=== PATIENT | female | born 1925 | race Caucasian/White ===

== ENCOUNTER 2016-09-15 10:23 | Inpatient (IN) | payer MEDICARE, OTHER ==
--- NOTE | 2016-09-15 10:56 | ER Document Report ---
ED Dizziness/Weakness - General Chief Complaint: General Weakness Stated Complaint: GENERAL WEAKNESS Notes: Patient is being seen today because of altered and change in mental status, inability to walk, which is not normal for her. Her daughter is here with the patient says the patient lives with her (the daughters) brother. Last week she was coughing and congested and her primary care provider put on a 5 day course of prednisone which she finished on Saturday. Saturday, the daughter says that the patient was "out of it" mentally, but she thought it might be due to the prednisone she had been taking. On Saturday and , the patient was "fine", then, yesterday, she was unable to walk and confused and "spaced out". Patient's normal mental status is "sharp as a tack", for example, according to the daughter, patient can complete the [employer] crossword puzzle in minutes. She does have poor eyesight and poor hearing chronically. She has headaches occasionally for a long time, nothing new. Daughter says patient has diarrhea frequently. No vomiting currently. Has not had a fever or been ill in any way recently. Her primary care provider called in a prescription for amoxicillin which the patient started yesterday with 2 doses and she's had one today. 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 TRAVEL OUTSIDE OF THE [place] IN LAST 30 DAYS: No - Related Data Allergies/Adverse Reactions: aspirin [Aspirin] Allergy (Verified 05/23/15 18:16) Penicillins Allergy (Verified 05/23/15 18:16) Past Medical History - Social History Smoking Status: Never Smoker Chew tobacco use (# tins/day): No Frequency of alcohol use: None Drug Abuse: None Family History: Reviewed & Not Pertinent, Other - No history of DVT, PE. - Past Medical History Cardiac Medical History: Reports: Hx DVT - Was on anticoagulation, but no longer on that medication. Neurological Medical History: Denies: Hx Cerebrovascular Accident GI Medical History: Reports: Hx Cirrhosis Psychiatric Medical History: Reports: Hx Depression Past Surgical History: Reports: Hx Orthopedic Surgery - L hip Review of Systems - Review of Systems Notes: REVIEW OF SYSTEMS: Obtained from patient's daughter CONSTITUTIONAL : Denies fever. EENT: Denies eye, ear, nose or mouth or throat pain or other symptoms. CARDIOVASCULAR: Denies chest pain. RESPIRATORY: Has had cough and congestion, but not short of breath. GASTROINTESTINAL: Denies abdominal pain or nausea, vomiting, but has chronic diarrhea. GENITOURINARY: Denies difficulty or painful urinating, urinary frequency, blood in urine. MUSCULOSKELETAL: Denies back or neck pain. Denies joint pain or swelling. SKIN: Denies rash or skin lesions. NEUROLOGICAL: See history of present illness. ALL OTHER SYSTEMS REVIEWED AND NEGATIVE. Physical Exam - Vital signs Vitals: Resp 18 09/15/16 10:35 - Notes Notes: PHYSICAL EXAMINATION: GENERAL: Well-appearing, in no acute distress. Rather frail-appearing individual. Vital signs are normal except attempt has not been recorded. HEAD: Atraumatic, normocephalic. EYES: Pupils equal round and reactive to light, extraocular movements intact. ENT: oropharynx clear without exudates. Moist mucous membranes. Several bad teeth. NECK: Normal range of motion, supple. LUNGS: Breath sounds clear and equal bilaterally. HEART: Regular rate and rhythm without murmurs. ABDOMEN: Soft, nontender. No guarding or rebound. BACK: No tenderness throughout entire back. EXTREMITIES: Normal range of motion without pain. Passively full range of motion of the lower extremities from the hips down. NEUROLOGICAL: Normal speech, seems confused; unable to stand. Awake, alert, and oriented x3. . PSYCH: Normal mood, normal affect. SKIN: Warm, dry, no rashes. Course - Re-evaluation Re-evalutation: 09/15/16 14:00 CT scan shows microvascular changes and atrophy, but no acute process. Lab work looks like a UTI with a cathetered urine specimen showing large white cells and red cells. CBC is essentially normal. - Vital Signs Vital signs: Temp Pulse Resp BP Pulse Ox 20 106/94 H 95 09/15/16 12:00 09/15/16 11:02 09/15/16 12:00 - Laboratory Result Diagrams: 09/15/16 10:59 09/15/16 10:59 Laboratory results interpreted by me: 09/15/16 09/15/16 10:59 11:17 BUN 81 H Creatinine 3.62 H Est GFR ( Amer) 14 L Est GFR (Non-Af Amer) 12 L Glucose 166 H Calcium 7.9 L Total Bilirubin 2.1 H Direct Bilirubin 1.7 H AST 43 H Alkaline Phosphatase 215 H Total Protein 5.5 L Albumin 2.0 L Urine Protein 30 H Urine Blood LARGE H Ur Leukocyte Esterase LARGE H - EKG Interpretation by Me EKG shows normal: Sinus rhythm Additional EKG results interpreted by me: 09/15/16 10:55 EKG looks like a sinus rhythm to me, even though the machine reads it as a "wandering pacemaker". Looks like an old inferior NE and also an old anterior/ anterior septal NE. No acute changes. Discharge - Discharge Clinical Impression: UTI (urinary tract infection) Admitting Provider: Hospitalist Unit Admitted: Telemetry Referrals: ASHLYN GELLER MD [Primary Care Provider] - Follow up as needed
[2016-09-15 11:43] LABS: ALANINE AMINOTRANSFERASE 43 U/L (9-52); ALKALINE PHOSPHATASE 215 U/L (38-126); ANION GAP 11 (5-19); ASPARTATE AMINO TRANSFERASE 43 U/L (14-36); BILIRUBIN,DIRECT 1.7 mg/dL (0.0-0.4); BILIRUBIN,TOTAL 2.1 mg/dL (0.2-1.3); BLOOD UREA NITROGEN 81 mg/dL (7-20); CALCIUM 7.9 mg/dL (8.4-10.2); CARBON DIOXIDE 23 mmol/L (22-30); CHLORIDE 106 mmol/L (98-107); CREATINE KINASE 52 U/L (30-135); CREATININE RESULT 3.62 mg/dL (0.52-1.25); GLUCOSE 166 mg/dL (75-110); POTASSIUM 4.7 mmol/L (3.6-5.0); SODIUM 140.1 mmol/L (137-145); TOTAL PROTEIN 5.5 g/dL (6.3-8.2)
[2016-09-15 11:46] LABS: PROTHROMBIN TIME 15.1 SEC (11.4-15.4)
[2016-09-15 11:49] LABS: AMORPHOUS SEDIMENT,URINE TRACE /HPF; APPEARANCE,URINE CLOUDY; BILIRUBIN,URINE NEGATIVE (NEGATIVE); GLUCOSE, URINE NEGATIVE (NEGATIVE); KETONES,URINE NEGATIVE (NEGATIVE); LEUKOCYTE ESTERASE,URINE LARGE (NEGATIVE); NITRITE,URINE NEGATIVE (NEGATIVE); PROTEIN,URINE 30 mg/dL (NEGATIVE); URINE SPECIFIC GRAVITY 1.009; UROBILINOGEN,URINE NEGATIVE mg/dL (<2.0)
[2016-09-15 11:54] LABS: CREATINE KINASE MB 0.82 ng/mL (<4.55)
[2016-09-15 11:58] LABS: TROPONIN I 0.056 ng/mL
[2016-09-15] MEDS ORDERED: CEFTRIAXONE 1 GM/D5W RTU 50 ML IV ONE (13:36)
[2016-09-15] MEDS ORDERED: POTASSI CL 20 MEQ/D5-1/2NS 1L 1,000 ML IV PRN (14:33)
[2016-09-15] MEDS ORDERED: LACTOBACILLUS ACIDOPHILUS 250 MG TAB PO ONE (14:36)
--- NOTE | 2016-09-15 15:12 | EKG REPORT ---
SEVERITY:- ABNORMAL ECG - WANDERING PACEMAKER PROBABLE INFERIOR INFARCT, OLD ANTERIOR INFARCT, OLD : Confirmed by: Chaparro Werner MD 15-Sep-2016 15:12:20
[2016-09-15] MEDS ORDERED: NORMAL SALINE 1000 ML 1,000 ML IV PRN (15:45)
[2016-09-15] MEDS ORDERED: FLUTICASONE NASAL SPRAY 50 MCG/SPRY 120 SPRAY/16 GM NASL ONE (15:56)
--- NOTE | 2016-09-15 16:37 | PDOC H&P ---
History of Present Illness Admission Date/PCP: 09/15/16 14:33 Dr. Olmos in [facility] Patient complains of: Weakness History of Present Illness: TODD JORGE is a 89 year old with a past medical history of chronic kidney disease stage III and remote history of DVT. The patient presented to the emergency department with her daughter with a chief complaint of weakness. According to the daughter, the patient had been treated for urinary tract infection by her primary care provider yesterday and was started on penicillin. According to the daughter the patient is allergic to amoxicillin. Since that time the patient has had decrease in appetite and diarrhea. Morning of presentation the daughter noted Altered and change in mental status, inability to walk, which is not normal for her. During to the daughter the patient resides with her her son. Last week she was coughing and congested and her primary care provider put on a 5 day course of prednisone which she finished on Saturday. Saturday, the daughter says that the patient was "out of it" mentally, but she thought it might be due to the prednisone she had been taking. On Saturday and , the patient was "fine", then, yesterday, she was unable to walk and confused and "spaced out". Patient's normal mental status is " sharp as a tack", for example, according to the daughter, patient can complete the [employer] crossword puzzle in minutes. She does have poor eyesight and poor hearing chronically. She has headaches occasionally for a long time, nothing new. Daughter says patient has diarrhea frequently. No vomiting currently. Has not had a fever or been ill in any way recently. Upon presentation the patient was found to have a creatinine that was elevated of 2.6 to wear is her baseline is in the 1.5 range. Patient was noted to have elevated LFTs as well. Hematology is still pending at the time of [employer]. The patient is a oriented to self and her daughter however she is disoriented regarding time and situation. MEDICATIONS: The medications listed in this document may have been auto- populated from previous contact and may not been verified or reconciled. This may not be an accurate reflection of the patient's home medication(s); however, authors are unable to edit or delete the medications listed in this document as "home medications". Past Medical History Cardiac Medical History: Reports: DVT - Was on anticoagulation, but no longer on that medication., Other - Diastolic dysfunction Pulmonary Medical History: Reports: Other - Primary hypertension GI Medical History: Reports: Cirrhosis Psychiatric Medical History: Reports: Depression Past Surgical History Past Surgical History: Reports: Orthopedic Surgery - Left hip Social History Information Source: Patient Lives with: Family Smoking Status: Never Smoker Frequency of Alcohol Use: Heavy - History of heavy alcohol use none currently Hx Recreational Drug Use: No Hx Prescription Drug Abuse: No - Advance Directive Resuscitation Status: Full Code Surrogate healthcare decision maker:: Karen Rebollar is her power of state's attorney papers a been presented Family History Family History: Reviewed & Not Pertinent, Other - No history of DVT, PE. Parental Family History Reviewed: Yes Children Family History Reviewed: Yes Sibling(s) Family History Reviewed.: Yes Medication/Allergy Home Medications: Furosemide [Lasix 40 mg Tablet] 40 mg PO QAM 04/13/15 Hydrocodone Bit/Acetaminophen [Hydrocodon-Acetaminophen 5-325] 1 tab PO Q4HP PRN 04/13/15 Allergies/Adverse Reactions: aspirin [Aspirin] Allergy (Verified 05/23/15 18:16) Penicillins Allergy (Verified 05/23/15 18:16) Review of Systems ROS unobtainable: Due to mental status - Unable to be fully obtain given the patient's mental status Physical Exam Vital Signs: Temp Pulse Resp BP Pulse Ox 21 H 104/59 L 96 09/15/16 15:40 09/15/16 15:40 09/15/16 15:40 Intake & Output 09/13/16 09/14/16 09/15/16 23:59 23:59 23:59 Weight 70.307 kg General appearance: PRESENT: no acute distress, cooperative, disheveled, well- developed Exam: Frail, chronically ill-appearing Head exam: PRESENT: atraumatic, normocephalic Eye exam: PRESENT: conjunctiva pink, EOMI, PERRLA. ABSENT: scleral icterus Ear exam: PRESENT: normal external ear exam Mouth exam: PRESENT: moist, tongue midline Neck exam: ABSENT: carotid bruit, JVD, lymphadenopathy, thyromegaly Respiratory exam: PRESENT: clear to auscultation noe. ABSENT: rales, rhonchi, wheezes Cardiovascular exam: PRESENT: RRR. ABSENT: diastolic murmur, rubs, systolic murmur Pulses: PRESENT: normal dorsalis pedis pul Vascular exam: PRESENT: normal capillary refill GI/Abdominal exam: PRESENT: normal bowel sounds, soft. ABSENT: distended, guarding, mass, organolmegaly, rebound, tenderness Rectal exam: PRESENT: deferred Extremities exam: PRESENT: full ROM. ABSENT: calf tenderness, clubbing, pedal edema Neurological exam: PRESENT: alert, awake, oriented to person, oriented to place. ABSENT: motor sensory deficit Psychiatric exam: PRESENT: appropriate affect, normal mood. ABSENT: homicidal ideation, suicidal ideation Skin exam: PRESENT: dry - Extremely, intact, warm. ABSENT: cyanosis, rash Results Laboratory Results: Abnormal - 24 hr 09/15/16 09/15/16 10:59 11:17 BUN 81 H Creatinine 3.62 H Est GFR ( Amer) 14 L Est GFR (Non-Af Amer) 12 L Glucose 166 H Calcium 7.9 L Total Bilirubin 2.1 H Direct Bilirubin 1.7 H AST 43 H Alkaline Phosphatase 215 H Total Protein 5.5 L Albumin 2.0 L Urine Protein 30 H Urine Blood LARGE H Ur Leukocyte Esterase LARGE H Impressions: Chest X-Ray 09/15/16 10:51 IMPRESSION: NO ACUTE RADIOGRAPHIC FINDING IN THE CHEST. Head CT 09/15/16 10:52 IMPRESSION: CHRONIC CHANGES OF ATROPHY AND MICROVASCULAR ISCHEMIA. NO ACUTE PROCESS. Assessment & Plan - Diagnosis (1) UTI (urinary tract infection) Qualifiers: Urinary tract infection type: site unspecified Hematuria presence: with hematuria Qualified Code(s): N39.0 - Urinary tract infection, site not specified; R31.9 - Hematuria, unspecified Is this a current diagnosis for this admission?: YesPlan: Urine culture is pending. The patient was given a dose of Rocephin by the emergency department. Will continue this. As the patient has had a UTI with Klebsiella in the past which was sensitive to this. Will continue current course. Will await cultures and sensitivities. (2) Acute kidney injury Is this a current diagnosis for this admission?: YesPlan: Secondary to #1 and as well as dehydration from diarrhea. Will hydrate and follow. It appears baseline creatinine is in the 1.5 range (3) Acute encephalopathy Is this a current diagnosis for this admission?: YesPlan: Secondary to UTI (4) Chronic kidney disease Qualifiers: Chronic kidney disease stage: stage 3 (moderate) Qualified Code(s): N18.3 - Chronic kidney disease, stage 3 (moderate) Is this a current diagnosis for this admission?: Yes (5) Cirrhosis Qualifiers: Hepatic cirrhosis type: unspecified hepatic cirrhosis Ascites presence : without ascites Qualified Code(s): K74.60 - Unspecified cirrhosis of liver Is this a current diagnosis for this admission?: Yes (7) Glaucoma Qualifiers: Glaucoma type: unspecified type Laterality: unspecified laterality Qualified Code(s): H40.9 - Unspecified glaucoma Is this a current diagnosis for this admission?: YesPlan: Will continue home medications. (8) Macular degeneration Is this a current diagnosis for this admission?: Yes (9) General weakness Is this a current diagnosis for this admission?: Yes (10) History of MRSA infection Is this a current diagnosis for this admission?: No - Time Time Spent: 50 to 70 Minutes Medications reviewed and adjusted accordingly: Yes Anticipated discharge: SNF Within: within 48 hours, when bed available - Inpatient Certification Based on my medical assessment, after consideration of the patient's comorbidities, presenting symptoms, or acuity I expect that the services needed warrant INPATIENT care.: Yes I certify that my determination is in accordance with my understanding of Medicare's requirements for reasonable and necessary INPATIENT services [42 CFR 412.3e].: Yes Medical Necessity: Need For IV Fluids, Need For Continuous Telemetry Monitoring , Need for IV Antibiotics, Risk of Complication if Not Cared For in Hospital Post Hospital Care: D/C or Transfer Summary
[2016-09-15 18:50] LABS: HEMATOCRIT 34.9 % (36.0-47.0); HEMOGLOBIN 11.7 g/dL (12.0-15.5); HGB HCT DIFFERENCE 0.2; MEAN CORPUSCULAR HEMOGLOBIN 32.1 pg (27.0-33.4); MEAN CORPUSCULAR HGB CONC 33.6 g/dL (32.0-36.0); MEAN CORPUSCULAR VOLUME 96 fl (80-97); RED BLOOD COUNT 3.65 10^6/uL (3.72-5.28); WHITE BLOOD COUNT 10.2 10^3/uL (4.0-10.5)
[2016-09-15] MEDS: LACTOBACILLUS ACIDOPHILUS 250 MG TAB PO SCH (20:23)
[2016-09-15] MEDS: FLUTICASONE NASAL SPRAY 50 MCG/SPRY 120 SPRAY/16 GM NASL SCH (20:23)
[2016-09-15] MEDS: PREDNISONE 20 MG TABLET PO SCH (20:24)
[2016-09-15] MEDS: AZITHROMYCIN 500 MG in DEXTROSE 5%-WATER 250 ML IV SCH (20:24)
[2016-09-15] MEDS: MONTELUKAST SODIUM 10 MG TABLET PO SCH (22:05)
[2016-09-16] MEDS: FLUTICASONE NASAL SPRAY 50 MCG/SPRY 120 SPRAY/16 GM NASL SCH ×2 (05:56→17:38)
[2016-09-16 07:22] LABS: HEMATOCRIT 32.6 % (36.0-47.0); HEMOGLOBIN 11.1 g/dL (12.0-15.5); HGB HCT DIFFERENCE 0.7; MEAN CORPUSCULAR HEMOGLOBIN 32.2 pg (27.0-33.4); MEAN CORPUSCULAR HGB CONC 34.1 g/dL (32.0-36.0); MEAN CORPUSCULAR VOLUME 94 fl (80-97); RED BLOOD COUNT 3.45 10^6/uL (3.72-5.28); RED CELL DISTRIBUTION WIDTH 16.9 % (11.5-14.0); WHITE BLOOD COUNT 6.2 10^3/uL (4.0-10.5)
[2016-09-16 07:32] LABS: ANION GAP 7 (5-19); BLOOD UREA NITROGEN 76 mg/dL (7-20); CALCIUM 7.5 mg/dL (8.4-10.2); CARBON DIOXIDE 19 mmol/L (22-30); CHLORIDE 109 mmol/L (98-107); CREATININE RESULT 3.08 mg/dL (0.52-1.25); GLUCOSE 177 mg/dL (75-110); MAGNESIUM 2.2 mg/dL (1.6-2.3); POTASSIUM 4.7 mmol/L (3.6-5.0); SODIUM 134.6 mmol/L (137-145)
[2016-09-16] MEDS: CITALOPRAM HYDROBROMIDE 20 MG TABLET PO SCH (09:39)
[2016-09-16] MEDS: CARVEDILOL 3.125 MG TABLET PO SCH ×2 (09:39→21:29)
[2016-09-16] MEDS: LACTOBACILLUS ACIDOPHILUS 250 MG TAB PO SCH ×2 (09:40→17:37)
[2016-09-16] MEDS: PREDNISONE 20 MG TABLET PO SCH ×2 (09:40→17:37)
[2016-09-16] MEDS ORDERED: CEFTRIAXONE 1 GM/D5W RTU 50 ML IV SCH (10:00)
[2016-09-16] MEDS ORDERED: BRIMONIDINE TARTRATE OU SCH (10:00)
--- NOTE | 2016-09-16 12:00 | PDOC PROGRESS REPORT ---
Subjective Progress Note for:: 09/16/16 Subjective:: The patient was seen earlier today on rounds. The patient complains of coughing up significant amount of sputum. The patient denies any diarrhea this morning. Patient admits to dizziness. The patient denies any nausea, vomiting , shortness of breath, chest pain, heart palpitations, fevers, or chills. The patient has remained afebrile. Blood pressures have been in a good range. When prompted the patient voices no other concerns at this time. Review of systems: The rest of the review of systems is negative. I called and discussed the case with the patient's daughter Anika who is power of quality internship. Physical Exam Vital Signs: Temp Pulse Resp BP Pulse Ox 97.4 F 51 L 17 133/51 H 97 09/16/16 07:24 09/16/16 07:24 09/16/16 07:24 09/16/16 07:24 09/16/16 07:24 Intake & Output 09/14/16 09/15/16 09/16/16 23:59 23:59 23:59 Intake Total 120 Balance 120 Weight 70.307 kg General appearance: PRESENT: no acute distress, cooperative, disheveled, well- developed Exam: Frail, chronically ill-appearing Head exam: PRESENT: atraumatic, normocephalic Eye exam: PRESENT: conjunctiva pink, EOMI, PERRLA. ABSENT: scleral icterus Ear exam: PRESENT: normal external ear exam Mouth exam: PRESENT: moist, tongue midline Neck exam: ABSENT: carotid bruit, JVD, lymphadenopathy, thyromegaly Respiratory exam: PRESENT: clear to auscultation noe. ABSENT: rales, rhonchi, wheezes Cardiovascular exam: PRESENT: RRR. ABSENT: diastolic murmur, rubs, systolic murmur Pulses: PRESENT: normal dorsalis pedis pul Vascular exam: PRESENT: normal capillary refill GI/Abdominal exam: PRESENT: normal bowel sounds, soft. ABSENT: distended, guarding, mass, organolmegaly, rebound, tenderness Rectal exam: PRESENT: deferred Extremities exam: PRESENT: full ROM. ABSENT: calf tenderness, clubbing, pedal edema Neurological exam: PRESENT: alert, awake, oriented to person, oriented to place. ABSENT: motor sensory deficit Psychiatric exam: PRESENT: appropriate affect, normal mood. ABSENT: homicidal ideation, suicidal ideation Skin exam: PRESENT: dry - Extremely, intact, warm. ABSENT: cyanosis, rash Results Laboratory Results: 09/16/16 07:01 09/16/16 07:01 09/15/16 09/15/16 09/16/16 14:52 18:36 07:01 WBC 10.2 6.2 RBC 3.65 L 3.45 L Hgb 11.7 L 11.1 L Hct 34.9 L 32.6 L MCV 96 94 MCH 32.1 32.2 MCHC 33.6 34.1 RDW 17.0 H 16.9 H Plt Count 41 L 35 L Sodium Potassium Chloride Carbon Dioxide Anion Gap BUN Creatinine Est GFR ( Amer) Est GFR (Non-Af Amer) Glucose Calcium Magnesium Lipase Stool for White Cells NO WBCs SEEN 09/16/16 09/16/16 07:01 07:01 WBC RBC Hgb Hct MCV MCH MCHC RDW Plt Count Sodium 134.6 L Potassium 4.7 Chloride 109 H Carbon Dioxide 19 L Anion Gap 7 BUN 76 H Creatinine 3.08 H Est GFR ( Amer) 17 L Est GFR (Non-Af Amer) 14 L Glucose 177 H Calcium 7.5 L Magnesium 2.2 Lipase < 10.0 L Stool for White Cells Impressions: Chest X-Ray 09/15/16 10:51 IMPRESSION: NO ACUTE RADIOGRAPHIC FINDING IN THE CHEST. Head CT 09/15/16 10:52 IMPRESSION: CHRONIC CHANGES OF ATROPHY AND MICROVASCULAR ISCHEMIA. NO ACUTE PROCESS. Assessment & Plan - Diagnosis (1) UTI (urinary tract infection) Qualifiers: Urinary tract infection type: site unspecified Hematuria presence: with hematuria Qualified Code(s): N39.0 - Urinary tract infection, site not specified Is this a current diagnosis for this admission?: YesPlan: Urine culture is pending. Continue Rocephin. As the patient has had a UTI with Klebsiella in the past which was sensitive to this. Will continue current course. Will await cultures and sensitivities. (2) Acute kidney injury Is this a current diagnosis for this admission?: YesPlan: Secondary to #1 and as well as dehydration from diarrhea. Will hydrate and follow. According to labs from about a year and a half ago it appears baseline creatinine is in the 1.5 range. The patient's creatinine has improved. Continue to gently hydrate. If creatinine does not improve significantly overnight or if it worsens will consult nephrology. Did discuss this with the daughter. 09/15/16 09/16/16 10:59 07:01 Creatinine 3.62 H 3.08 H (3) Acute encephalopathy Is this a current diagnosis for this admission?: YesPlan: Secondary to UTI. Improved this morning. (4) Chronic kidney disease Qualifiers: Chronic kidney disease stage: stage 3 (moderate) Qualified Code(s): N18.3 - Chronic kidney disease, stage 3 (moderate) Is this a current diagnosis for this admission?: Yes (5) Cirrhosis Qualifiers: Hepatic cirrhosis type: unspecified hepatic cirrhosis Ascites presence : without ascites Qualified Code(s): K74.60 - Unspecified cirrhosis of liver Is this a current diagnosis for this admission?: YesPlan: The patient's platelet count has trended down. Discussed this with the patient' s daughter in relation to her cirrhosis. Will repeat in the a.m. the patient' s LFTs are worse in comparison to previous labs. Discussed worsening hepatic failure with the patient's daughter. This appears to be the trend they are agreeable to palliative care consultation. (6) Pulmonary hypertension Is this a current diagnosis for this admission?: Yes (7) Glaucoma Qualifiers: Glaucoma type: unspecified type Laterality: unspecified laterality Qualified Code(s): H40.9 - Unspecified glaucoma Is this a current diagnosis for this admission?: YesPlan: Will continue home medications. (8) Macular degeneration Is this a current diagnosis for this admission?: Yes (9) General weakness Is this a current diagnosis for this admission?: Yes (10) History of MRSA infection Is this a current diagnosis for this admission?: No - Time Time Spent with patient: 25-34 minutes Medications reviewed and adjusted accordingly: Yes
[2016-09-16] MEDS: TIMOLOL MALEATE 0.25% OPH SOLN 5 ML OU SCH (15:11)
[2016-09-16] MEDS: BRIMONIDINE TARTRATE 0.2% OPH SOLN 5 ML OU SCH (17:37)
[2016-09-16] MEDS: AZITHROMYCIN 500 MG in DEXTROSE 5%-WATER 250 ML IV SCH (17:37)
[2016-09-16] MEDS: MIRTAZAPINE 15 MG TABLET PO SCH (21:28)
[2016-09-16] MEDS: LATANOPROST 0.005% OPH SOLN 2.5 ML OU SCH (21:29)
[2016-09-16] MEDS ORDERED: AZTREONAM INJ 1 GM VIAL IV PRN (21:29)
[2016-09-16] MEDS: MONTELUKAST SODIUM 10 MG TABLET PO SCH (21:29)
[2016-09-16] MEDS ORDERED: PHARMACY COMMUNICATION ORDER MC SCH (21:30)
[2016-09-16] MEDS: NORMAL SALINE 1000 ML 1,000 ML IV PRN (21:31)
[2016-09-16] MEDS ORDERED: AZTREONAM INJ 1 GM VIAL ONE ×2 (21:38→21:39)
[2016-09-16] MEDS ORDERED: AZTREONAM 2 GM in DEXTROSE 5%-WATER 100 ML IV ONE (22:00)
[2016-09-16] MEDS ORDERED: AZTREONAM INJ 1 GM VIAL IV SCH (22:00)
[2016-09-17] MEDS: FLUTICASONE NASAL SPRAY 50 MCG/SPRY 120 SPRAY/16 GM NASL SCH ×2 (05:08→17:26)
[2016-09-17 07:11] LABS: HEMATOCRIT 37.6 % (36.0-47.0); HEMOGLOBIN 12.6 g/dL (12.0-15.5); HGB HCT DIFFERENCE 0.2; MEAN CORPUSCULAR HEMOGLOBIN 32.2 pg (27.0-33.4); MEAN CORPUSCULAR HGB CONC 33.6 g/dL (32.0-36.0); MEAN CORPUSCULAR VOLUME 96 fl (80-97); RED BLOOD COUNT 3.93 10^6/uL (3.72-5.28); WHITE BLOOD COUNT 9.3 10^3/uL (4.0-10.5)
[2016-09-17] MEDS: CARVEDILOL 3.125 MG TABLET PO SCH ×2 (09:35→21:10)
[2016-09-17] MEDS: CITALOPRAM HYDROBROMIDE 20 MG TABLET PO SCH (09:35)
[2016-09-17] MEDS: LACTOBACILLUS ACIDOPHILUS 250 MG TAB PO SCH ×2 (09:35→17:27)
[2016-09-17] MEDS: BRIMONIDINE TARTRATE 0.2% OPH SOLN 5 ML OU SCH ×2 (09:36→17:24)
[2016-09-17] MEDS: TIMOLOL MALEATE 0.25% OPH SOLN 5 ML OU SCH (09:36)
[2016-09-17] MEDS: AZTREONAM 1 GM in DEXTROSE 5%-WATER 50 ML IV SCH ×2 (09:36→17:25)
[2016-09-17] MEDS: PREDNISONE 20 MG TABLET PO SCH ×2 (09:36→17:27)
[2016-09-17 10:56] LABS: ALANINE AMINOTRANSFERASE 60 U/L (9-52); ALBUMIN 1.8 g/dL (3.5-5.0); ALKALINE PHOSPHATASE 294 U/L (38-126); ANION GAP 11 (5-19); ASPARTATE AMINO TRANSFERASE 73 U/L (14-36); BILIRUBIN,TOTAL 1.2 mg/dL (0.2-1.3); BLOOD UREA NITROGEN 69 mg/dL (7-20); CALCIUM 7.5 mg/dL (8.4-10.2); CARBON DIOXIDE 18 mmol/L (22-30); CHLORIDE 110 mmol/L (98-107); GLUCOSE 154 mg/dL (75-110); MAGNESIUM 2.1 mg/dL (1.6-2.3); PHOSPHORUS 3.8 mg/dL (2.5-4.5); SODIUM 139.2 mmol/L (137-145)
[2016-09-17 11:09] LABS: ANISOCYTOSIS 2+; BAND NEUTROPHILS % (MANUAL) 1 % (3-5); BASOPHILS % (MANUAL) 0 % (0-2); EOSINOPHILS % (MANUAL) 0 % (0-6); HYPOCHROMASIA 1+; LYMPHOCYTES % (MANUAL) 13 % (13-45); POLYCHROMASIA SLIGHT; TARGET CELLS 2+; TOTAL CELLS COUNTED 100; TOXIC GRANULATION SLIGHT
--- NOTE | 2016-09-17 13:26 | PDOC PROGRESS REPORT ---
Subjective Progress Note for:: 09/17/16 Subjective:: The patient was seen earlier today on rounds. I returned a second time to visit with the patient's daughter. The patient complains of coughing up significant amount of sputum upon awakening in the morning. However she is no longer producing sputum this afternoon. The patient is uncertain if she is still having diarrhea. There are none reported. Patient admits to dizziness. The patient denies any nausea, vomiting, shortness of breath, chest pain, heart palpitations, fevers, or chills. The patient has remained afebrile. Blood pressures have been in a good range. When prompted the patient voices no other concerns at this time. Review of systems: The rest of the review of systems is negative. Brief history: The patient is a 89-year-old female with a past medical history of cirrhosis. The patient presented to the emergency department due to confusion. The patient was found to have a UTI and bacteremia due to this. Patient has responded well to antibiotic therapy. The patient was also noted to be in acute renal failure which has improved with gentle hydration. Overall the patient has had a functional decline in the last year. Spoke with the daughter who is in agreement as to speak with palliative care given the patient's underlying chronic issues as well as overall failure to thrive. Physical Exam Vital Signs: Temp Pulse Resp BP Pulse Ox 98.2 F 82 16 105/69 96 09/17/16 02:00 09/17/16 07:00 09/17/16 02:00 09/17/16 02:00 09/17/16 02:00 Intake & Output 09/15/16 09/16/16 09/17/16 23:59 23:59 23:59 Intake Total 120 1902 1000 Balance 120 1902 1000 Weight 70.307 kg General appearance: PRESENT: no acute distress, cooperative, disheveled, well- developed Exam: Frail, chronically ill-appearing Head exam: PRESENT: atraumatic, normocephalic Eye exam: PRESENT: conjunctiva pink, EOMI, PERRLA. ABSENT: scleral icterus Ear exam: PRESENT: normal external ear exam Mouth exam: PRESENT: moist, tongue midline Neck exam: ABSENT: carotid bruit, JVD, lymphadenopathy, thyromegaly Respiratory exam: PRESENT: clear to auscultation noe. ABSENT: rales, rhonchi, wheezes Cardiovascular exam: PRESENT: RRR. ABSENT: diastolic murmur, rubs, systolic murmur Pulses: PRESENT: normal dorsalis pedis pul Vascular exam: PRESENT: normal capillary refill GI/Abdominal exam: PRESENT: normal bowel sounds, soft. ABSENT: distended, guarding, mass, organolmegaly, rebound, tenderness Rectal exam: PRESENT: deferred Extremities exam: PRESENT: full ROM. ABSENT: calf tenderness, clubbing, pedal edema Neurological exam: PRESENT: alert, awake, oriented to person, oriented to place. ABSENT: motor sensory deficit Psychiatric exam: PRESENT: appropriate affect, normal mood. ABSENT: homicidal ideation, suicidal ideation Skin exam: PRESENT: dry - Extremely, intact, warm. ABSENT: cyanosis, rash Results Laboratory Results: 09/17/16 06:54 09/17/16 10:31 09/17/16 09/17/16 09/17/16 06:54 06:54 10:31 WBC 9.3 RBC 3.93 Hgb 12.6 Hct 37.6 MCV 96 MCH 32.2 MCHC 33.6 RDW 17.0 H Plt Count 48 L Seg Neutrophils % Not Reportable Lymphocytes % Not Reportable Monocytes % Not Reportable Eosinophils % Not Reportable Basophils % Not Reportable Absolute Neutrophils Not Reportable Absolute Lymphocytes Not Reportable Absolute Monocytes Not Reportable Absolute Eosinophils Not Reportable Absolute Basophils Not Reportable Sodium Cancelled 139.2 Potassium Cancelled 4.0 Chloride Cancelled 110 H Carbon Dioxide Cancelled 18 L Anion Gap Cancelled 11 BUN Cancelled 69 H Creatinine Cancelled 2.50 H Est GFR ( Amer) Cancelled 22 L Est GFR (Non-Af Amer) Cancelled 18 L Glucose Cancelled 154 H Calcium Cancelled 7.5 L Phosphorus Cancelled 3.8 Magnesium Cancelled 2.1 Total Bilirubin Cancelled 1.2 AST Cancelled 73 H ALT Cancelled 60 H Alkaline Phosphatase Cancelled 294 H Total Protein Cancelled 4.0 L Albumin Cancelled 1.8 L Impressions: Chest X-Ray 09/15/16 10:51 IMPRESSION: NO ACUTE RADIOGRAPHIC FINDING IN THE CHEST. Head CT 09/15/16 10:52 IMPRESSION: CHRONIC CHANGES OF ATROPHY AND MICROVASCULAR ISCHEMIA. NO ACUTE PROCESS. Assessment & Plan - Diagnosis (1) UTI (urinary tract infection) Qualifiers: Urinary tract infection type: site unspecified Hematuria presence: with hematuria Qualified Code(s): N39.0 - Urinary tract infection, site not specified Is this a current diagnosis for this admission?: YesPlan: Pansensitive Escherichia coli. Continue Rocephin. (2) Bacteremia Is this a current diagnosis for this admission?: YesPlan: Most likely secondary to #1. Given the patient has received 2 days via antibiotic therapy will repeat blood cultures. (3) Acute kidney injury Is this a current diagnosis for this admission?: YesPlan: Secondary to #1 and as well as dehydration from diarrhea. Will hydrate and follow. According to labs from about a year and a half ago it appears baseline creatinine is in the 1.5 range. The patient's creatinine has improved. Continue to gently hydrate. If creatinine does not improve significantly overnight or if it worsens will consult nephrology. Did discuss this with the daughter. (4) Acute encephalopathy Is this a current diagnosis for this admission?: YesPlan: Secondary to UTI. Improved this morning. Back to baseline. (5) Chronic kidney disease Qualifiers: Chronic kidney disease stage: stage 3 (moderate) Qualified Code(s): N18.3 - Chronic kidney disease, stage 3 (moderate) Is this a current diagnosis for this admission?: Yes (6) Cirrhosis Qualifiers: Hepatic cirrhosis type: unspecified hepatic cirrhosis Ascites presence : without ascites Qualified Code(s): K74.60 - Unspecified cirrhosis of liver Is this a current diagnosis for this admission?: YesPlan: Discussed this with the patient's daughter in relation to her cirrhosis. Will repeat in the a.m. The patient's LFTs have waxed and waned. Discussed worsening hepatic failure with the patient's daughter. This appears to be the trend they are agreeable to palliative care consultation. (7) Thrombocytopenia Is this a current diagnosis for this admission?: YesPlan: Secondary to cirrhosis and acute infection will follow. (8) Pulmonary hypertension Is this a current diagnosis for this admission?: Yes (9) Glaucoma Qualifiers: Glaucoma type: unspecified type Laterality: unspecified laterality Qualified Code(s): H40.9 - Unspecified glaucoma Is this a current diagnosis for this admission?: YesPlan: Will continue home medications. 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 Pending patient's symptomatology and diagnostic findings will reevaluate in the a.m.
[2016-09-17] MEDS: GUAIFENESIN 600 MG TABLET.SA PO SCH ×2 (14:54→17:27)
[2016-09-17] MEDS: AZITHROMYCIN 500 MG in DEXTROSE 5%-WATER 250 ML IV SCH (17:26)
[2016-09-17] MEDS: MONTELUKAST SODIUM 10 MG TABLET PO SCH (21:10)
[2016-09-17] MEDS: LATANOPROST 0.005% OPH SOLN 2.5 ML OU SCH (21:11)
[2016-09-17] MEDS: MIRTAZAPINE 15 MG TABLET PO SCH (21:11)
[2016-09-18] MEDS: GUAIFENESIN 600 MG TABLET.SA PO SCH ×4 (00:22→17:40)
[2016-09-18] MEDS: AZTREONAM 1 GM in DEXTROSE 5%-WATER 50 ML IV SCH ×2 (00:23→09:51)
[2016-09-18] MEDS: FLUTICASONE NASAL SPRAY 50 MCG/SPRY 120 SPRAY/16 GM NASL SCH ×2 (05:30→17:42)
[2016-09-18 06:05] LABS: HEMATOCRIT 34.1 % (36.0-47.0); HGB HCT DIFFERENCE 1.9; MEAN CORPUSCULAR HEMOGLOBIN 32.9 pg (27.0-33.4); MEAN CORPUSCULAR HGB CONC 35.1 g/dL (32.0-36.0); MEAN CORPUSCULAR VOLUME 94 fl (80-97); RED BLOOD COUNT 3.65 10^6/uL (3.72-5.28); RED CELL DISTRIBUTION WIDTH 16.5 % (11.5-14.0); WHITE BLOOD COUNT 9.5 10^3/uL (4.0-10.5)
[2016-09-18 06:40] LABS: ANION GAP 10 (5-19); BLOOD UREA NITROGEN 67 mg/dL (7-20); CARBON DIOXIDE 18 mmol/L (22-30); CHLORIDE 112 mmol/L (98-107); CREATININE RESULT 2.51 mg/dL (0.52-1.25); GLUCOSE 104 mg/dL (75-110); MAGNESIUM 2.3 mg/dL (1.6-2.3); POTASSIUM 4.4 mmol/L (3.6-5.0); SODIUM 139.9 mmol/L (137-145)
--- NOTE | 2016-09-18 09:46 | PDOC PROGRESS REPORT ---
Subjective Progress Note for:: 09/18/16 Subjective:: Patient is seen on morning rounds. She is resting in bed. She is confused to time, place and person. She denies any comlaints at the present time. There is no family at the bedside. Unable to complete review of systems due to patient's mentation Physical Exam Vital Signs: Temp Pulse Resp BP Pulse Ox 97.5 F 81 17 150/68 H 99 09/18/16 04:20 09/18/16 07:00 09/18/16 04:20 09/18/16 04:20 09/18/16 04:20 Intake & Output 09/17/16 09/18/16 09/19/16 06:59 06:59 06:59 Intake Total 2902 2667 Balance 2902 2667 General appearance: PRESENT: no acute distress, well-developed, well-nourished Head exam: PRESENT: atraumatic, normocephalic Eye exam: PRESENT: conjunctiva pink, EOMI, PERRLA. ABSENT: scleral icterus Ear exam: PRESENT: normal external ear exam Mouth exam: PRESENT: moist, tongue midline Neck exam: PRESENT: carotid bruit Respiratory exam: PRESENT: clear to auscultation noe. ABSENT: rales, rhonchi, wheezes Cardiovascular exam: PRESENT: RRR. ABSENT: diastolic murmur, rubs, systolic murmur Pulses: PRESENT: normal dorsalis pedis pul Vascular exam: PRESENT: normal capillary refill GI/Abdominal exam: PRESENT: normal bowel sounds, soft. ABSENT: distended, guarding, mass, organolmegaly, rebound, tenderness Rectal exam: PRESENT: deferred Extremities exam: PRESENT: full ROM. ABSENT: calf tenderness, clubbing, pedal edema Musculoskeletal exam: PRESENT: full ROM, normal inspection Neurological exam: PRESENT: alert, CN II-XII grossly intact Psychiatric exam: PRESENT: flat affect Skin exam: PRESENT: dry, intact, warm. ABSENT: cyanosis, rash Results Laboratory Results: 09/18/16 05:48 09/18/16 05:48 09/17/16 09/17/16 09/18/16 06:54 10:31 05:48 WBC 9.3 9.5 RBC 3.93 3.65 L Hgb 12.6 12.0 Hct 37.6 34.1 L MCV 96 94 MCH 32.2 32.9 MCHC 33.6 35.1 RDW 17.0 H 16.5 H Plt Count 48 L 34 L Sodium 139.2 Potassium 4.0 Chloride 110 H Carbon Dioxide 18 L Anion Gap 11 BUN 69 H Creatinine 2.50 H Est GFR ( Amer) 22 L Est GFR (Non-Af Amer) 18 L Glucose 154 H Calcium 7.5 L Phosphorus 3.8 Magnesium 2.1 Total Bilirubin 1.2 AST 73 H ALT 60 H Alkaline Phosphatase 294 H Total Protein 4.0 L Albumin 1.8 L 09/18/16 05:48 WBC RBC Hgb Hct MCV MCH MCHC RDW Plt Count Sodium 139.9 Potassium 4.4 Chloride 112 H Carbon Dioxide 18 L Anion Gap 10 BUN 67 H Creatinine 2.51 H Est GFR ( Amer) 22 L Est GFR (Non-Af Amer) 18 L Glucose 104 Calcium 8.0 L Phosphorus Magnesium 2.3 Total Bilirubin AST ALT Alkaline Phosphatase Total Protein Albumin 09/15/16 14:52 Stool - Stool - Final 09/15/16 14:52 Stool - Stool Stool Culture - Final NO SALMONELLA, SHIGELLA, CAMPYLOBACTER, OR E.COLI 0157 RECOVERED. NEGATIVE FOR SHIGA TOXINS 1&2. Impressions: Chest X-Ray 09/15/16 10:51 IMPRESSION: NO ACUTE RADIOGRAPHIC FINDING IN THE CHEST. Head CT 09/15/16 10:52 IMPRESSION: CHRONIC CHANGES OF ATROPHY AND MICROVASCULAR ISCHEMIA. NO ACUTE PROCESS. Assessment & Plan - Diagnosis (1) Acute encephalopathy Is this a current diagnosis for this admission?: YesPlan: Resolved to baseline mentation (2) Bacteremia Is this a current diagnosis for this admission?: YesPlan: Gram negative rods from urinary tract infection. Repeat cultures are pending (3) UTI (urinary tract infection) Qualifiers: Urinary tract infection type: site unspecified Hematuria presence: with hematuria Qualified Code(s): N39.0 - Urinary tract infection, site not specified Is this a current diagnosis for this admission?: YesPlan: Continue current antibiotics, pending repeat blood cultures (4) Acute kidney injury Is this a current diagnosis for this admission?: YesPlan: Slowly improving with IV hydration (5) Chronic kidney disease Qualifiers: Chronic kidney disease stage: stage 3 (moderate) Qualified Code(s): N18.3 - Chronic kidney disease, stage 3 (moderate) Is this a current diagnosis for this admission?: YesPlan: Avoid nephrotoxic dosages and medications (6) Cirrhosis Qualifiers: Hepatic cirrhosis type: unspecified hepatic cirrhosis Ascites presence : without ascites Qualified Code(s): K74.60 - Unspecified cirrhosis of liver Is this a current diagnosis for this admission?: YesPlan: Stable (7) Thrombocytopenia Is this a current diagnosis for this admission?: YesPlan: Secondary to cirrhosis and infection (8) General weakness Is this a current diagnosis for this admission?: YesPlan: Physical therapy following - Time Time Spent with patient: 25-34 minutes Critical Time spent with patient: 15-24 minutes Medications reviewed and adjusted accordingly: Yes
[2016-09-18] MEDS: LACTOBACILLUS ACIDOPHILUS 250 MG TAB PO SCH ×2 (09:53→17:40)
[2016-09-18] MEDS: CITALOPRAM HYDROBROMIDE 20 MG TABLET PO SCH (09:53)
[2016-09-18] MEDS: PREDNISONE 20 MG TABLET PO SCH (09:53)
[2016-09-18] MEDS: CARVEDILOL 3.125 MG TABLET PO SCH (09:53)
[2016-09-18] MEDS: BRIMONIDINE TARTRATE 0.2% OPH SOLN 5 ML OU SCH ×2 (09:54→17:41)
[2016-09-18] MEDS: TIMOLOL MALEATE 0.25% OPH SOLN 5 ML OU SCH (09:54)
[2016-09-18 15:26] LABS: PATH REVIEW PATHOLOGIST REVIEWED
[2016-09-18] MEDS: AZITHROMYCIN 250 MG TABLET PO SCH (17:41)
[2016-09-18] MEDS ORDERED: AZITHROMYCIN 250 MG TABLET PO SCH (18:00)
[2016-09-18] MEDS: NORMAL SALINE 1000 ML 1,000 ML IV PRN (21:45)
[2016-09-18] MEDS: LATANOPROST 0.005% OPH SOLN 2.5 ML OU SCH (21:46)
[2016-09-18] MEDS: MIRTAZAPINE 15 MG TABLET PO SCH (21:46)
[2016-09-18] MEDS: MONTELUKAST SODIUM 10 MG TABLET PO SCH (21:46)
[2016-09-19] MEDS: CARVEDILOL 3.125 MG TABLET PO SCH ×3 (00:59→21:13)
[2016-09-19] MEDS: GUAIFENESIN 600 MG TABLET.SA PO SCH ×4 (01:01→18:40)
[2016-09-19 04:35] LABS: ALANINE AMINOTRANSFERASE 78 U/L (9-52); ALBUMIN 1.8 g/dL (3.5-5.0); ALKALINE PHOSPHATASE 357 U/L (38-126); ANION GAP 9 (5-19); ASPARTATE AMINO TRANSFERASE 72 U/L (14-36); BILIRUBIN,TOTAL 1.3 mg/dL (0.2-1.3); BLOOD UREA NITROGEN 62 mg/dL (7-20); CALCIUM 7.6 mg/dL (8.4-10.2); CARBON DIOXIDE 17 mmol/L (22-30); CHLORIDE 114 mmol/L (98-107); CREATININE RESULT 2.26 mg/dL (0.52-1.25); GLUCOSE 92 mg/dL (75-110); POTASSIUM 4.5 mmol/L (3.6-5.0); SODIUM 139.7 mmol/L (137-145); TOTAL PROTEIN 4.9 g/dL (6.3-8.2)
[2016-09-19] MEDS: FLUTICASONE NASAL SPRAY 50 MCG/SPRY 120 SPRAY/16 GM NASL SCH ×2 (05:36→18:40)
[2016-09-19] MEDS ORDERED: LEVOFLOXACIN 500 MG/D5W RTU 100 ML IV SCH (10:00)
[2016-09-19] MEDS: PREDNISONE 20 MG TABLET PO SCH (10:01)
[2016-09-19] MEDS: CITALOPRAM HYDROBROMIDE 20 MG TABLET PO SCH (10:01)
[2016-09-19] MEDS: LACTOBACILLUS ACIDOPHILUS 250 MG TAB PO SCH ×2 (10:01→18:40)
[2016-09-19] MEDS: BRIMONIDINE TARTRATE 0.2% OPH SOLN 5 ML OU SCH ×2 (10:02→18:41)
[2016-09-19] MEDS: TIMOLOL MALEATE 0.25% OPH SOLN 5 ML OU SCH (10:02)
--- NOTE | 2016-09-19 11:46 | PDOC PROGRESS REPORT ---
Subjective Progress Note for:: 09/19/16 Subjective:: Patient is seen on morning rounds. She is resting in bed eating breakfast. She is confused to time, place and person. She denies any comlaints at the present time. There is no family at the bedside. Unable to complete review of systems due to patient's mentation Physical Exam Vital Signs: Temp Pulse Resp BP Pulse Ox 97.2 F 57 L 16 153/63 H 100 09/19/16 07:27 09/19/16 07:27 09/19/16 07:27 09/19/16 07:27 09/19/16 07:27 Intake & Output 09/18/16 09/19/16 09/20/16 06:59 06:59 06:59 Intake Total 2667 1200 Balance 2667 1200 General appearance: PRESENT: no acute distress, well-developed, well-nourished Head exam: PRESENT: atraumatic, normocephalic Eye exam: PRESENT: conjunctiva pink, EOMI, PERRLA. ABSENT: scleral icterus Ear exam: PRESENT: normal external ear exam Mouth exam: PRESENT: moist, tongue midline Neck exam: ABSENT: carotid bruit, JVD, lymphadenopathy, thyromegaly Respiratory exam: PRESENT: clear to auscultation noe. ABSENT: rales, rhonchi, wheezes Cardiovascular exam: PRESENT: RRR. ABSENT: diastolic murmur, rubs, systolic murmur Pulses: PRESENT: normal dorsalis pedis pul Vascular exam: PRESENT: normal capillary refill GI/Abdominal exam: PRESENT: hypoactive bowel sounds, soft Rectal exam: PRESENT: deferred Extremities exam: PRESENT: full ROM. ABSENT: calf tenderness, clubbing, pedal edema Neurological exam: PRESENT: alert, altered, CN II-XII grossly intact Psychiatric exam: PRESENT: anxious, flat affect Skin exam: PRESENT: dry, intact, warm. ABSENT: cyanosis, rash Results Laboratory Results: 09/18/16 05:48 09/19/16 03:49 09/17/16 09/19/16 06:54 03:49 WBC 9.3 RBC 3.93 Hgb 12.6 Hct 37.6 MCV 96 MCH 32.2 MCHC 33.6 RDW 17.0 H Plt Count 48 L Sodium 139.7 Potassium 4.5 Chloride 114 H Carbon Dioxide 17 L Anion Gap 9 BUN 62 H Creatinine 2.26 H Est GFR ( Amer) 25 L Est GFR (Non-Af Amer) 20 L Glucose 92 Calcium 7.6 L Total Bilirubin 1.3 AST 72 H ALT 78 H Alkaline Phosphatase 357 H Total Protein 4.9 L Albumin 1.8 L Impressions: Chest X-Ray 09/15/16 10:51 IMPRESSION: NO ACUTE RADIOGRAPHIC FINDING IN THE CHEST. Head CT 09/15/16 10:52 IMPRESSION: CHRONIC CHANGES OF ATROPHY AND MICROVASCULAR ISCHEMIA. NO ACUTE PROCESS. Assessment & Plan - Diagnosis (1) Acute encephalopathy Is this a current diagnosis for this admission?: YesPlan: Resolved to baseline mentation (2) Bacteremia Is this a current diagnosis for this admission?: YesPlan: Gram negative rods from urinary tract infection. Repeat cultures are pending and negative at 24 hrs (3) UTI (urinary tract infection) Qualifiers: Urinary tract infection type: site unspecified Hematuria presence: with hematuria Qualified Code(s): N39.0 - Urinary tract infection, site not specified Is this a current diagnosis for this admission?: YesPlan: Continue current antibiotics, pending repeat blood cultures (4) Acute kidney injury Is this a current diagnosis for this admission?: YesPlan: Slowly improving with IV hydration (5) Chronic kidney disease Qualifiers: Chronic kidney disease stage: stage 3 (moderate) Qualified Code(s): N18.3 - Chronic kidney disease, stage 3 (moderate) Is this a current diagnosis for this admission?: YesPlan: Avoid nephrotoxic dosages and medications (6) Cirrhosis Qualifiers: Hepatic cirrhosis type: unspecified hepatic cirrhosis Ascites presence : without ascites Qualified Code(s): K74.60 - Unspecified cirrhosis of liver Is this a current diagnosis for this admission?: YesPlan: Stable (7) Thrombocytopenia Is this a current diagnosis for this admission?: YesPlan: Secondary to cirrhosis and infection (8) General weakness Is this a current diagnosis for this admission?: YesPlan: Physical therapy following - Time Time Spent with patient: 25-34 minutes Critical Time spent with patient: 15-24 minutes Medications reviewed and adjusted accordingly: Yes
[2016-09-19] MEDS: NYSTATIN 500000 UNIT/5 ML UDCUP PO SCH ×3 (14:53→21:14)
[2016-09-19] MEDS: AZITHROMYCIN 250 MG TABLET PO SCH (18:40)
[2016-09-19] MEDS: MIRTAZAPINE 15 MG TABLET PO SCH (21:13)
[2016-09-19] MEDS: MONTELUKAST SODIUM 10 MG TABLET PO SCH (21:14)
[2016-09-19] MEDS: ACETAMINOPHEN 325 MG TABLET PO PRN (21:14)
[2016-09-19] MEDS: LATANOPROST 0.005% OPH SOLN 2.5 ML OU SCH (21:14)
--- NOTE | 2016-09-19 23:25 | Palliative Consultation Report ---
Consultation From:: BREANNA TAM - [facility] HPI: Palliative care visit with patient and daughter at 11;20- 11;50 AM 09/19/16 Appreciate consult request with this 89 year old female admitted for UTI and AMS. She lives in her home with her son, but her daughter cares for her. She is normally in bed most of the day except when her daughter gets her up to shower each morning. Normally, patient is very clear headed, but after taking steroids for five days for increased cough, she became very confused and was brought to ER where the UTI was diagnosed. She is now on IV antibiotics. Mrs. Thapa is less confused now but very hard of hearing. She is not eating or drinking because she has thrush on her tonue and sore throat. She also has not been out of bed at all since admission and her daughter is afraid she will get very weak. RN called hospitalist who ordered Nystatin for her mouth and PT for strengthening. Mrs. Thapa has never discussed her end of life wishes with her daughter. I talked to her daughter at length about the futility of CPR and intubation for her mother. We discussed many aspects of these measures, which as independent as her mother is, would certainly be very difficult for her, if she would be pedro of it. However, the daughter did not want to make any decisions about her mother until she had a chance to talk with patient about it. She is stilll so ill and a little confused, so she doesnt want to talk to her now. ALso, patient is very hard of hearing and would be confused with the questions at this point. There is much stress in the family, daughter has also cared for her father until he dies. Her rother does very little to care for Mrs. Thapa and it is all left to daughter. She needs some help with this care as her mother has been declining recentlyl Mrs. Thapa would be eligble for hospice with her decline in renal functionas well as her very low albumin. Her daughter would like to have hospice help after discharge. Onset: Last week Onset/Duration: Gradual Quality of Pain: No pain Associated Symptoms: Sore throat, Weakness Exacerbated by: Movement Past Medical History(Consults) - General Information Source: Relative, [facility] Records Home Medications: Furosemide [Lasix 40 mg Tablet] 40 mg PO QAM 04/13/15 Hydrocodone Bit/Acetaminophen [Hydrocodon-Acetaminophen 5-325] 1 tab PO Q4HP PRN 04/13/15 Brimonidine Tartrate [Alphagan P] 5 ml OU BID 09/15/16 Carvedilol [Coreg 3.125 mg Tablet] 3.125 mg PO BID 09/15/16 Citalopram Hydrobromide [Celexa 20 mg Tablet] 20 mg PO DAILY 09/15/16 Furosemide [Lasix] 20 mg PO QAM 09/15/16 Latanoprost 2.5 ml OU QHS 09/15/16 Loperamide HCl [Loperamide] 2 mg PO QID 09/15/16 Mirtazapine 7.5 mg PO QHS 09/15/16 Spironolactone [Aldactone 25 mg Tablet] 25 mg PO DAILY 09/15/16 Timolol Maleate [Timoptic] 5 ml OU DAILY 09/15/16 Allergies/Adverse Reactions: aspirin [Aspirin] Allergy (Verified 05/23/15 18:16) Penicillins Allergy (Verified 05/23/15 18:16) - Social History Lives with: Family Family History: Reviewed & Not Pertinent, Other - No history of DVT, PE. Parental Family History Reviewed: No Children Family History Reviewed: No Sibling(s) Family History Reviewed.: No Smoking Status: Never Smoker Frequency of Alcohol Use: None Hx Prescription Drug Abuse: No - Past Medical History Cardiac Medical History: Reports: Hx DVT - Was on anticoagulation, but no longer on that medication., Other - Diastolic dysfunction Pulmonary Medical History: Reports: Hx Bronchitis, Other - Primary hypertension Neurological Medical History: Denies: Hx Cerebrovascular Accident Renal/ Medical History: Reports: Hx Renal Insufficiency GI Medical History: Reports: Hx Cirrhosis Psychiatric Medical History: Reports: Hx Depression - Surgical History Past Surgical History: Reports: Hx Orthopedic Surgery - L hip Review of systems ROS unobtainable: due to mental statu - still confused, also having problems talking due to pain in mouth from thrush Ojective:Exam Vital Signs: Temp Pulse Resp BP Pulse Ox 97.9 F 62 18 153/65 H 100 09/19/16 19:52 09/19/16 19:52 09/19/16 19:52 09/19/16 19:52 09/19/16 19:52 Intake & Output 09/18/16 09/19/16 09/20/16 06:59 06:59 06:59 Intake Total 2667 1200 1013 Balance 2667 1200 1013 - General General Appearance: Lethargic In distress: Mild Note:: complains of pain in n=mouth and feeling "bad" all over - HEENT Head: Normocephalic Eyes: Pale conjunctiva Ears: Normal Mouth/Lips: Other - white plaque on tongue, left side more densly covered Mucous membrane: Moist - Neck Neck: Normal - Respiratory Respiratory Status: No respiratory distress Breath sounds: Clear - Cardiovascular Rhythm: Regular Pulses: Normal: Radial - Neurological Cognition: Other - Too weak to talk much to determine orientation Orientation: Oriented to person, Oriented to place Speech: Other - speech very weak - Psychological Associated symptoms: Normal affect Objective-Diagnostic Laboratory: 09/18/16 05:48 09/19/16 03:49 09/19/16 03:49 Sodium 139.7 Potassium 4.5 Chloride 114 H Carbon Dioxide 17 L Anion Gap 9 BUN 62 H Creatinine 2.26 H Est GFR ( Amer) 25 L Est GFR (Non-Af Amer) 20 L Glucose 92 Calcium 7.6 L Total Bilirubin 1.3 AST 72 H ALT 78 H Alkaline Phosphatase 357 H Total Protein 4.9 L Albumin 1.8 L Plan and Recommendation Plan and Recommendation: above, discussed advance directives and futility of resuscitation with daughter, but she did not want to make any decisions. MOST form given to daughter to review and I will come back to help complete when she is ready. She says she thinks her mother would want CPR if needed, but again I explained that she doesnt really understand the reality of it and is too ill to be able to explain to her. Hospitalist ordered meds for thruxh to help patient eat. However, her albumin is so low that she would be appropriate for hospice due to low protein malnutrition. I asked hospice liason to follow with patient and hope hospitalist will order hospice consult on discharge. WIll follow for continued discussion advance directives. - Time Spent with Patient Time spent with patient: 15 to 30 Minutes - Thirty minutes spent in chart review and discussion with patient and daughter.
[2016-09-20] MEDS: GUAIFENESIN 600 MG TABLET.SA PO SCH ×4 (00:59→17:54)
[2016-09-20] MEDS: FLUTICASONE NASAL SPRAY 50 MCG/SPRY 120 SPRAY/16 GM NASL SCH ×2 (05:06→17:54)
[2016-09-20] MEDS ORDERED: NORMAL SALINE 1000 ML 1,000 ML IV PRN (09:45)
[2016-09-20] MEDS ORDERED: PREDNISONE 20 MG TABLET PO SCH (09:45)
[2016-09-20] MEDS: LACTOBACILLUS ACIDOPHILUS 250 MG TAB PO SCH ×2 (10:39→17:54)
[2016-09-20] MEDS: NYSTATIN 500000 UNIT/5 ML UDCUP PO SCH ×4 (10:39→21:13)
[2016-09-20] MEDS: LEVOFLOXACIN 250 MG TABLET PO SCH (10:39)
[2016-09-20] MEDS: CITALOPRAM HYDROBROMIDE 20 MG TABLET PO SCH (10:40)
[2016-09-20] MEDS: CARVEDILOL 3.125 MG TABLET PO SCH ×2 (10:40→21:13)
[2016-09-20] MEDS: TIMOLOL MALEATE 0.25% OPH SOLN 5 ML OU SCH (10:40)
[2016-09-20] MEDS: BRIMONIDINE TARTRATE 0.2% OPH SOLN 5 ML OU SCH ×2 (10:41→17:55)
[2016-09-20] MEDS ORDERED: PREDNISONE 10 MG TABLET PO ONE (11:00)
[2016-09-20] MEDS: NYSTATIN/DEXAMETH/DIPHEN SUSP 120 ML PO SCH ×4 (11:01→21:13)
--- NOTE | 2016-09-20 13:05 | PDOC PROGRESS REPORT ---
Subjective Progress Note for:: 09/20/16 Subjective:: Patient is seen on morning rounds. She is resting in bed eating breakfast. She is confused to time, place and situation. She denies any complaints at the present time. There is no family at the bedside. Unable to complete review of systems due to patient's mentation Physical Exam Vital Signs: Temp Pulse Resp BP Pulse Ox 97.8 F 60 16 157/72 H 100 09/20/16 11:29 09/20/16 11:29 09/20/16 11:29 09/20/16 11:29 09/20/16 11:29 Intake & Output 09/19/16 09/20/16 09/21/16 06:59 06:59 06:59 Intake Total 1200 1913 Balance 1200 1913 Weight 75.2 kg General appearance: PRESENT: no acute distress, well-developed, well-nourished Head exam: PRESENT: atraumatic, normocephalic Eye exam: PRESENT: conjunctiva pink, EOMI, PERRLA. ABSENT: scleral icterus Ear exam: PRESENT: normal external ear exam Mouth exam: PRESENT: moist, tongue midline Neck exam: ABSENT: carotid bruit, JVD, lymphadenopathy, thyromegaly Respiratory exam: PRESENT: clear to auscultation noe. ABSENT: rales, rhonchi, wheezes Cardiovascular exam: PRESENT: RRR. ABSENT: diastolic murmur, rubs, systolic murmur Pulses: PRESENT: normal dorsalis pedis pul Vascular exam: PRESENT: normal capillary refill GI/Abdominal exam: PRESENT: normal bowel sounds, soft. ABSENT: distended, guarding, mass, organolmegaly, rebound, tenderness Rectal exam: PRESENT: deferred Extremities exam: PRESENT: full ROM. ABSENT: calf tenderness, clubbing, pedal edema Neurological exam: PRESENT: alert, altered, CN II-XII grossly intact Psychiatric exam: PRESENT: appropriate affect, normal mood. ABSENT: homicidal ideation, suicidal ideation Skin exam: PRESENT: dry, intact, warm. ABSENT: cyanosis, rash Results Laboratory Results: 09/18/16 05:48 09/19/16 03:49 Impressions: Chest X-Ray 09/15/16 10:51 IMPRESSION: NO ACUTE RADIOGRAPHIC FINDING IN THE CHEST. Head CT 09/15/16 10:52 IMPRESSION: CHRONIC CHANGES OF ATROPHY AND MICROVASCULAR ISCHEMIA. NO ACUTE PROCESS. Assessment & Plan - Diagnosis (1) Acute encephalopathy Is this a current diagnosis for this admission?: YesPlan: Resolved to baseline mentation (2) Bacteremia Is this a current diagnosis for this admission?: YesPlan: Gram negative rods from urinary tract infection. Repeat cultures are negative at 48hrs. Will transition patient to oral antibiotic therapy in preparation for discharge (3) UTI (urinary tract infection) Qualifiers: Urinary tract infection type: site unspecified Hematuria presence: with hematuria Qualified Code(s): N39.0 - Urinary tract infection, site not specified Is this a current diagnosis for this admission?: YesPlan: Will change levaquin from IV to po (4) Acute kidney injury Is this a current diagnosis for this admission?: YesPlan: Slowly improving with IV hydration (5) Chronic kidney disease Qualifiers: Chronic kidney disease stage: stage 3 (moderate) Qualified Code(s): N18.3 - Chronic kidney disease, stage 3 (moderate) Is this a current diagnosis for this admission?: YesPlan: Avoid nephrotoxic dosages and medications (6) Cirrhosis Qualifiers: Hepatic cirrhosis type: unspecified hepatic cirrhosis Ascites presence : without ascites Qualified Code(s): K74.60 - Unspecified cirrhosis of liver Is this a current diagnosis for this admission?: YesPlan: Stable (7) Thrombocytopenia Is this a current diagnosis for this admission?: YesPlan: Secondary to cirrhosis and infection (8) General weakness Is this a current diagnosis for this admission?: YesPlan: Physical therapy following - Time Time Spent with patient: 25-34 minutes Critical Time spent with patient: 15-24 minutes Medications reviewed and adjusted accordingly: Yes Anticipated discharge: Home with Homehealth
[2016-09-20] MEDS: MIRTAZAPINE 15 MG TABLET PO SCH (21:13)
[2016-09-20] MEDS: MONTELUKAST SODIUM 10 MG TABLET PO SCH (21:13)
[2016-09-20] MEDS: LATANOPROST 0.005% OPH SOLN 2.5 ML OU SCH (21:14)
[2016-09-21] MEDS: GUAIFENESIN 600 MG TABLET.SA PO SCH ×5 (02:07→23:36)
[2016-09-21] MEDS: FLUTICASONE NASAL SPRAY 50 MCG/SPRY 120 SPRAY/16 GM NASL SCH ×2 (05:55→18:35)
[2016-09-21 06:07] LABS: ABSOLUTE BASOPHILS # (AUTO) 0.1 10^3/uL (0.0-0.2); ABSOLUTE EOSINOPHILS # (AUTO) 0.1 10^3/uL (0.0-0.6); ABSOLUTE LYMPHOCYTES (AUTO) 1.7 10^3/uL (0.5-4.7); ABSOLUTE MONOCYTES (AUTO) 0.5 10^3/uL (0.1-1.4); ABSOLUTE NEUT (AUTO) 7.3 10^3/uL (1.7-8.2); BASOPHILS % (AUTO) 0.9 % (0-2); HEMATOCRIT 33.5 % (36.0-47.0); HEMOGLOBIN 11.5 g/dL (12.0-15.5); LYMPHOCYTES % (AUTO) 17.9 % (13-45); MEAN CORPUSCULAR HEMOGLOBIN 32.3 pg (27.0-33.4); MEAN CORPUSCULAR HGB CONC 34.3 g/dL (32.0-36.0); MEAN CORPUSCULAR VOLUME 94 fl (80-97); MONOCYTES % (AUTO) 5.1 % (3-13); RED BLOOD COUNT 3.56 10^6/uL (3.72-5.28); RED CELL DISTRIBUTION WIDTH 16.7 % (11.5-14.0); SEGMENTED NEUTROPHILS % (AUTO) 75.1 % (42-78); WHITE BLOOD COUNT 9.7 10^3/uL (4.0-10.5)
[2016-09-21 06:25] LABS: ANION GAP 6 (5-19); BLOOD UREA NITROGEN 56 mg/dL (7-20); CALCIUM 7.9 mg/dL (8.4-10.2); CARBON DIOXIDE 17 mmol/L (22-30); CHLORIDE 119 mmol/L (98-107); CREATININE RESULT 2.13 mg/dL (0.52-1.25); GLUCOSE 64 mg/dL (75-110); POTASSIUM 4.6 mmol/L (3.6-5.0); SODIUM 142.1 mmol/L (137-145)
[2016-09-21] MEDS: CITALOPRAM HYDROBROMIDE 20 MG TABLET PO SCH (10:08)
[2016-09-21] MEDS: PREDNISONE 10 MG TABLET PO SCH (10:08)
[2016-09-21] MEDS: LACTOBACILLUS ACIDOPHILUS 250 MG TAB PO SCH ×2 (10:08→18:34)
[2016-09-21] MEDS: BRIMONIDINE TARTRATE 0.2% OPH SOLN 5 ML OU SCH ×2 (10:09→18:37)
[2016-09-21] MEDS: NYSTATIN 500000 UNIT/5 ML UDCUP PO SCH ×4 (10:09→22:03)
[2016-09-21] MEDS: CARVEDILOL 3.125 MG TABLET PO SCH ×2 (10:09→22:03)
[2016-09-21] MEDS: TIMOLOL MALEATE 0.25% OPH SOLN 5 ML OU SCH (10:10)
[2016-09-21] MEDS: LEVOFLOXACIN 250 MG TABLET PO SCH (10:10)
[2016-09-21] MEDS: NYSTATIN/DEXAMETH/DIPHEN SUSP 120 ML PO SCH ×4 (10:11→22:03)
[2016-09-21] MEDS: MICONAZOLE NITRATE 2% CREAM 15GM TP SCH (18:38)
[2016-09-21] MEDS: MONTELUKAST SODIUM 10 MG TABLET PO SCH (22:03)
[2016-09-21] MEDS: MIRTAZAPINE 15 MG TABLET PO SCH (22:03)
[2016-09-21] MEDS: LATANOPROST 0.005% OPH SOLN 2.5 ML OU SCH (22:09)
[2016-09-22] MEDS: FLUTICASONE NASAL SPRAY 50 MCG/SPRY 120 SPRAY/16 GM NASL SCH ×2 (05:21→16:49)
[2016-09-22] MEDS: GUAIFENESIN 600 MG TABLET.SA PO SCH ×4 (05:21→23:38)
[2016-09-22 05:38] LABS: ANION GAP 10 (5-19); BLOOD UREA NITROGEN 48 mg/dL (7-20); CALCIUM 7.9 mg/dL (8.4-10.2); CARBON DIOXIDE 17 mmol/L (22-30); CHLORIDE 119 mmol/L (98-107); CREATININE RESULT 1.89 mg/dL (0.52-1.25); GLUCOSE 72 mg/dL (75-110); POTASSIUM 4.4 mmol/L (3.6-5.0); SODIUM 145.5 mmol/L (137-145)
[2016-09-22] MEDS: PREDNISONE 10 MG TABLET PO SCH (10:04)
[2016-09-22] MEDS: NYSTATIN 500000 UNIT/5 ML UDCUP PO SCH ×4 (10:04→21:50)
[2016-09-22] MEDS: CITALOPRAM HYDROBROMIDE 20 MG TABLET PO SCH (10:05)
[2016-09-22] MEDS: LEVOFLOXACIN 250 MG TABLET PO SCH (10:05)
[2016-09-22] MEDS: LACTOBACILLUS ACIDOPHILUS 250 MG TAB PO SCH ×2 (10:05→16:37)
[2016-09-22] MEDS: CARVEDILOL 3.125 MG TABLET PO SCH ×2 (10:05→21:50)
[2016-09-22] MEDS: BRIMONIDINE TARTRATE 0.2% OPH SOLN 5 ML OU SCH ×2 (10:06→16:47)
[2016-09-22] MEDS: TIMOLOL MALEATE 0.25% OPH SOLN 5 ML OU SCH (10:06)
[2016-09-22] MEDS: NYSTATIN/DEXAMETH/DIPHEN SUSP 120 ML PO SCH ×4 (10:07→21:50)
[2016-09-22] MEDS: MICONAZOLE NITRATE 2% CREAM 15GM TP SCH ×2 (10:07→18:02)
--- NOTE | 2016-09-22 13:46 | PDOC PROGRESS REPORT ---
Subjective Progress Note for:: 09/22/16 Subjective:: Patient is seen on morning rounds. She is resting in bed eating breakfast. She is confused to time, place and situation. She denies any complaints at the present time. There is no family at the bedside. Unable to complete review of systems due to patient's mentation Physical Exam Vital Signs: Temp Pulse Resp BP Pulse Ox 97.9 F 63 18 157/71 H 99 09/22/16 03:23 09/22/16 07:00 09/22/16 03:23 09/22/16 03:23 09/22/16 03:23 Intake & Output 09/21/16 09/22/16 09/23/16 06:59 06:59 06:59 Intake Total 2511 2350 Balance 2511 2350 Weight 70 kg 73.7 kg General appearance: PRESENT: no acute distress, well-developed, well-nourished Head exam: PRESENT: atraumatic, normocephalic Eye exam: PRESENT: conjunctiva pink, EOMI, PERRLA. ABSENT: scleral icterus Ear exam: PRESENT: normal external ear exam Mouth exam: PRESENT: moist, tongue midline Neck exam: ABSENT: carotid bruit, JVD, lymphadenopathy, thyromegaly Respiratory exam: PRESENT: clear to auscultation noe. ABSENT: rales, rhonchi, wheezes Cardiovascular exam: PRESENT: RRR. ABSENT: diastolic murmur, rubs, systolic murmur Pulses: PRESENT: normal dorsalis pedis pul Vascular exam: PRESENT: normal capillary refill GI/Abdominal exam: PRESENT: normal bowel sounds, soft. ABSENT: distended, guarding, mass, organolmegaly, rebound, tenderness Rectal exam: PRESENT: deferred Extremities exam: PRESENT: full ROM. ABSENT: calf tenderness, clubbing, pedal edema Neurological exam: PRESENT: alert, altered, oriented to person, CN II-XII grossly intact Psychiatric exam: PRESENT: appropriate affect, normal mood. ABSENT: homicidal ideation, suicidal ideation Skin exam: PRESENT: dry, intact, warm. ABSENT: cyanosis, rash Results Laboratory Results: 09/21/16 05:58 09/22/16 04:57 09/22/16 04:57 Sodium 145.5 H Potassium 4.4 Chloride 119 H Carbon Dioxide 17 L Anion Gap 10 BUN 48 H Creatinine 1.89 H Est GFR ( Amer) 30 L Est GFR (Non-Af Amer) 25 L Glucose 72 L Calcium 7.9 L 09/17/16 11:31 Blood Blood Culture - Final NO GROWTH IN 5 DAYS Impressions: Chest X-Ray 09/15/16 10:51 IMPRESSION: NO ACUTE RADIOGRAPHIC FINDING IN THE CHEST. Head CT 09/15/16 10:52 IMPRESSION: CHRONIC CHANGES OF ATROPHY AND MICROVASCULAR ISCHEMIA. NO ACUTE PROCESS. Assessment & Plan - Diagnosis (1) Acute encephalopathy Is this a current diagnosis for this admission?: YesPlan: Resolved to baseline mentation (2) Bacteremia Is this a current diagnosis for this admission?: YesPlan: Gram negative rods from urinary tract infection. Repeat cultures are negative at 48hrs. Will transition patient to oral antibiotic therapy in preparation for discharge (3) UTI (urinary tract infection) Qualifiers: Urinary tract infection type: site unspecified Hematuria presence: with hematuria Qualified Code(s): N39.0 - Urinary tract infection, site not specified Is this a current diagnosis for this admission?: YesPlan: Will change levaquin from IV to po (4) Acute kidney injury Is this a current diagnosis for this admission?: YesPlan: Slowly improving with IV hydration. Will stop IV fluids today (5) Chronic kidney disease Qualifiers: Chronic kidney disease stage: stage 3 (moderate) Qualified Code(s): N18.3 - Chronic kidney disease, stage 3 (moderate) Is this a current diagnosis for this admission?: YesPlan: Avoid nephrotoxic dosages and medications (6) Cirrhosis Qualifiers: Hepatic cirrhosis type: unspecified hepatic cirrhosis Ascites presence : without ascites Qualified Code(s): K74.60 - Unspecified cirrhosis of liver Is this a current diagnosis for this admission?: YesPlan: Stable (7) Thrombocytopenia Is this a current diagnosis for this admission?: YesPlan: Secondary to cirrhosis and infection (8) General weakness Is this a current diagnosis for this admission?: YesPlan: Physical therapy following - Time Time Spent with patient: 25-34 minutes Critical Time spent with patient: 15-24 minutes Medications reviewed and adjusted accordingly: Yes Anticipated discharge: Home with Homehealth Within: within 48 hours
[2016-09-22] MEDS: MONTELUKAST SODIUM 10 MG TABLET PO SCH (21:50)
[2016-09-22] MEDS: MIRTAZAPINE 15 MG TABLET PO SCH (21:50)
[2016-09-22] MEDS: LATANOPROST 0.005% OPH SOLN 2.5 ML OU SCH (21:50)
[2016-09-23] MEDS: GUAIFENESIN 600 MG TABLET.SA PO SCH ×3 (05:38→18:14)
[2016-09-23] MEDS: FLUTICASONE NASAL SPRAY 50 MCG/SPRY 120 SPRAY/16 GM NASL SCH ×2 (05:38→18:14)
[2016-09-23] MEDS: LACTOBACILLUS ACIDOPHILUS 250 MG TAB PO SCH ×2 (10:46→18:14)
[2016-09-23] MEDS: CITALOPRAM HYDROBROMIDE 20 MG TABLET PO SCH (10:46)
[2016-09-23] MEDS: CARVEDILOL 3.125 MG TABLET PO SCH ×2 (10:47→22:03)
[2016-09-23] MEDS: PREDNISONE 10 MG TABLET PO SCH (10:47)
[2016-09-23] MEDS: NYSTATIN 500000 UNIT/5 ML UDCUP PO SCH ×4 (10:48→22:03)
[2016-09-23] MEDS: NYSTATIN/DEXAMETH/DIPHEN SUSP 120 ML PO SCH ×4 (10:48→22:03)
[2016-09-23] MEDS: BRIMONIDINE TARTRATE 0.2% OPH SOLN 5 ML OU SCH ×2 (10:48→18:14)
[2016-09-23] MEDS: TIMOLOL MALEATE 0.25% OPH SOLN 5 ML OU SCH ×2 (10:49→18:14)
[2016-09-23] MEDS: MICONAZOLE NITRATE 2% CREAM 15GM TP SCH ×2 (10:49→18:34)
--- NOTE | 2016-09-23 12:31 | PDOC PROGRESS REPORT ---
Subjective Progress Note for:: 09/23/16 Subjective:: Patient is seen on morning rounds. She is resting in bed eating breakfast. She is confused to time, and situation. She is oriented to time and place. She is much more interactive with conversation. She denies any complaints at the present time. There is no family at the bedside. Unable to complete review of systems due to patient's mentation Physical Exam Vital Signs: Temp Pulse Resp BP Pulse Ox 97.9 F 66 20 153/62 H 100 09/23/16 11:14 09/23/16 11:14 09/23/16 11:14 09/23/16 11:14 09/23/16 11:14 Intake & Output 09/22/16 09/23/16 09/24/16 06:59 06:59 06:59 Intake Total 2350 840 Balance 2350 840 Weight 73.7 kg General appearance: PRESENT: no acute distress, obese, well-developed, well- nourished Head exam: PRESENT: atraumatic, normocephalic Eye exam: PRESENT: conjunctiva pink, EOMI, PERRLA. ABSENT: scleral icterus Ear exam: PRESENT: bleeding Mouth exam: PRESENT: moist, tongue midline Neck exam: ABSENT: carotid bruit, JVD, lymphadenopathy, thyromegaly Respiratory exam: PRESENT: decreased breath sounds, symmetrical, unlabored Cardiovascular exam: PRESENT: RRR. ABSENT: diastolic murmur, rubs, systolic murmur Pulses: PRESENT: normal dorsalis pedis pul Vascular exam: PRESENT: normal capillary refill GI/Abdominal exam: PRESENT: normal bowel sounds, soft. ABSENT: distended, guarding, mass, organolmegaly, rebound, tenderness Rectal exam: PRESENT: deferred Extremities exam: PRESENT: full ROM. ABSENT: calf tenderness, clubbing, pedal edema Musculoskeletal exam: PRESENT: ambulatory, full ROM, normal inspection Neurological exam: PRESENT: alert, altered, oriented to person, oriented to place, CN II-XII grossly intact Psychiatric exam: PRESENT: appropriate affect Skin exam: PRESENT: dry, intact, warm. ABSENT: cyanosis, rash Results Laboratory Results: 09/21/16 05:58 09/22/16 04:57 09/17/16 17:45 Blood Blood Culture - Final NO GROWTH IN 5 DAYS 09/17/16 11:31 Blood Blood Culture - Final NO GROWTH IN 5 DAYS Impressions: Chest X-Ray 09/15/16 10:51 IMPRESSION: NO ACUTE RADIOGRAPHIC FINDING IN THE CHEST. Head CT 09/15/16 10:52 IMPRESSION: CHRONIC CHANGES OF ATROPHY AND MICROVASCULAR ISCHEMIA. NO ACUTE PROCESS. Assessment & Plan - Diagnosis (1) UTI (urinary tract infection) Qualifiers: Urinary tract infection type: site unspecified Hematuria presence: with hematuria Qualified Code(s): N39.0 - Urinary tract infection, site not specified Is this a current diagnosis for this admission?: YesPlan: Will discontinue antibiotics after am dose (2) Acute encephalopathy Is this a current diagnosis for this admission?: YesPlan: Resolved to baseline mentation (3) Acute kidney injury Is this a current diagnosis for this admission?: YesPlan: Improved. Patient is now eating and drinking well. (4) Chronic kidney disease Qualifiers: Chronic kidney disease stage: stage 3 (moderate) Qualified Code(s): N18.3 - Chronic kidney disease, stage 3 (moderate) Is this a current diagnosis for this admission?: YesPlan: Avoid nephrotoxic dosages and medications (5) Cirrhosis Qualifiers: Hepatic cirrhosis type: unspecified hepatic cirrhosis Ascites presence : without ascites Qualified Code(s): K74.60 - Unspecified cirrhosis of liver Is this a current diagnosis for this admission?: YesPlan: Stable (6) Thrombocytopenia Is this a current diagnosis for this admission?: YesPlan: Secondary to cirrhosis and infection (7) General weakness Is this a current diagnosis for this admission?: YesPlan: Physical therapy following (8) Bacteremia Is this a current diagnosis for this admission?: YesPlan: Gram negative rods from urinary tract infection. Repeat cultures are negative at 48hrs. Will transition patient to oral antibiotic therapy in preparation for discharge - Time Time Spent with patient: 25-34 minutes Critical Time spent with patient: 15-24 minutes Medications reviewed and adjusted accordingly: Yes Anticipated discharge: Home with Homehealth, Hospice Within: within 24 hours
[2016-09-23] MEDS: LATANOPROST 0.005% OPH SOLN 2.5 ML OU SCH (22:03)
[2016-09-23] MEDS: MIRTAZAPINE 15 MG TABLET PO SCH (22:03)
[2016-09-23] MEDS: MONTELUKAST SODIUM 10 MG TABLET PO SCH (22:03)
[2016-09-23] MEDS: ACETAMINOPHEN 325 MG TABLET PO PRN (22:04)
[2016-09-24] MEDS: GUAIFENESIN 600 MG TABLET.SA PO SCH ×5 (01:04→22:37)
[2016-09-24] MEDS: FLUTICASONE NASAL SPRAY 50 MCG/SPRY 120 SPRAY/16 GM NASL SCH ×2 (06:30→17:37)
[2016-09-24 07:18] LABS: ABSOLUTE BASOPHILS # (AUTO) 0.1 10^3/uL (0.0-0.2); ABSOLUTE EOSINOPHILS # (AUTO) 0.2 10^3/uL (0.0-0.6); ABSOLUTE LYMPHOCYTES (AUTO) 2.5 10^3/uL (0.5-4.7); ABSOLUTE MONOCYTES (AUTO) 0.8 10^3/uL (0.1-1.4); ABSOLUTE NEUT (AUTO) 6.3 10^3/uL (1.7-8.2); BASOPHILS % (AUTO) 0.7 % (0-2); EOSINOPHILS % (AUTO) 2.4 % (0-6); HEMATOCRIT 34.7 % (36.0-47.0); HEMOGLOBIN 11.4 g/dL (12.0-15.5); HGB HCT DIFFERENCE -0.5; LYMPHOCYTES % (AUTO) 25.2 % (13-45); MEAN CORPUSCULAR HEMOGLOBIN 31.9 pg (27.0-33.4); MEAN CORPUSCULAR HGB CONC 32.8 g/dL (32.0-36.0); MEAN CORPUSCULAR VOLUME 97 fl (80-97); MONOCYTES % (AUTO) 7.7 % (3-13); RED BLOOD COUNT 3.57 10^6/uL (3.72-5.28); RED CELL DISTRIBUTION WIDTH 18.2 % (11.5-14.0); WHITE BLOOD COUNT 9.8 10^3/uL (4.0-10.5)
[2016-09-24] MEDS: LACTOBACILLUS ACIDOPHILUS 250 MG TAB PO SCH ×2 (11:00→17:36)
[2016-09-24] MEDS: PREDNISONE 10 MG TABLET PO SCH (11:00)
[2016-09-24] MEDS: CITALOPRAM HYDROBROMIDE 20 MG TABLET PO SCH (11:00)
[2016-09-24] MEDS: NYSTATIN 500000 UNIT/5 ML UDCUP PO SCH ×4 (11:01→22:36)
[2016-09-24] MEDS: CARVEDILOL 3.125 MG TABLET PO SCH ×2 (11:01→22:36)
[2016-09-24] MEDS: BRIMONIDINE TARTRATE 0.2% OPH SOLN 5 ML OU SCH ×2 (11:03→17:38)
[2016-09-24] MEDS: NYSTATIN/DEXAMETH/DIPHEN SUSP 120 ML PO SCH ×4 (11:03→22:37)
[2016-09-24] MEDS: MICONAZOLE NITRATE 2% CREAM 15GM TP SCH ×2 (11:04→17:35)
[2016-09-24 12:56] LABS: ALANINE AMINOTRANSFERASE 69 U/L (9-52); ALBUMIN 1.8 g/dL (3.5-5.0); ALKALINE PHOSPHATASE 380 U/L (38-126); ANION GAP 7 (5-19); ASPARTATE AMINO TRANSFERASE 53 U/L (14-36); BILIRUBIN,DIRECT 1.3 mg/dL (0.0-0.4); BILIRUBIN,TOTAL 1.9 mg/dL (0.2-1.3); BLOOD UREA NITROGEN 37 mg/dL (7-20); CARBON DIOXIDE 16 mmol/L (22-30); CHLORIDE 122 mmol/L (98-107); CREATININE RESULT 1.61 mg/dL (0.52-1.25); GLUCOSE 114 mg/dL (75-110); POTASSIUM 4.7 mmol/L (3.6-5.0); SODIUM 144.6 mmol/L (137-145); TOTAL PROTEIN 5.2 g/dL (6.3-8.2)
--- NOTE | 2016-09-24 15:26 | PDOC PROGRESS REPORT ---
Subjective Progress Note for:: 09/24/16 Subjective:: Patient is seen on morning rounds. She is resting in bed eating breakfast. She is confused to time, and situation. She is oriented to time and place. Her daughter is at bedside this morning. We discussed their goals for post discharge care. Patient and daughter wish [facility] services. Mrs Thapa denies any complaints at the present time. Unable to complete review of systems due to patient's mentation Physical Exam Vital Signs: Temp Pulse Resp BP Pulse Ox 97.4 F 64 17 148/69 H 98 09/24/16 11:16 09/24/16 11:16 09/24/16 11:16 09/24/16 11:16 09/24/16 11:16 Intake & Output 09/23/16 09/24/16 09/25/16 06:59 06:59 06:59 Intake Total 840 1185 Balance 840 1185 Weight 75.6 kg General appearance: PRESENT: no acute distress, well-developed, well-nourished Head exam: PRESENT: atraumatic, normocephalic Eye exam: PRESENT: conjunctiva pink, EOMI, PERRLA. ABSENT: scleral icterus Ear exam: PRESENT: normal external ear exam Mouth exam: PRESENT: moist, tongue midline Respiratory exam: PRESENT: clear to auscultation noe. ABSENT: rales, rhonchi, wheezes Cardiovascular exam: PRESENT: RRR. ABSENT: diastolic murmur, rubs, systolic murmur Pulses: PRESENT: normal dorsalis pedis pul Vascular exam: PRESENT: normal capillary refill GI/Abdominal exam: PRESENT: normal bowel sounds, soft. ABSENT: distended, guarding, mass, organolmegaly, rebound, tenderness Rectal exam: PRESENT: deferred Extremities exam: PRESENT: full ROM. ABSENT: calf tenderness, clubbing, pedal edema Musculoskeletal exam: PRESENT: full ROM, normal inspection, tenderness Neurological exam: PRESENT: alert, altered, awake, oriented to person, CN II- XII grossly intact Psychiatric exam: PRESENT: appropriate affect, normal mood. ABSENT: homicidal ideation, suicidal ideation Skin exam: PRESENT: dry, intact, warm. ABSENT: cyanosis, rash Results Laboratory Results: 09/24/16 07:06 09/24/16 12:04 09/24/16 09/24/16 09/24/16 07:06 07:06 10:25 WBC 9.8 RBC 3.57 L Hgb 11.4 L Hct 34.7 L MCV 97 MCH 31.9 MCHC 32.8 RDW 18.2 H Plt Count 109 L Seg Neutrophils % 64.0 Lymphocytes % 25.2 Monocytes % 7.7 Eosinophils % 2.4 Basophils % 0.7 Absolute Neutrophils 6.3 Absolute Lymphocytes 2.5 Absolute Monocytes 0.8 Absolute Eosinophils 0.2 Absolute Basophils 0.1 Sodium Cancelled Cancelled Potassium Cancelled Cancelled Chloride Cancelled Cancelled Carbon Dioxide Cancelled Cancelled Anion Gap Cancelled Cancelled BUN Cancelled Cancelled Creatinine Cancelled Cancelled Est GFR ( Amer) Cancelled Cancelled Est GFR (Non-Af Amer) Cancelled Cancelled Glucose Cancelled Cancelled Calcium Cancelled Cancelled Total Bilirubin Cancelled Cancelled AST Cancelled Cancelled ALT Cancelled Cancelled Alkaline Phosphatase Cancelled Cancelled Total Protein Cancelled Cancelled Albumin Cancelled Cancelled 09/24/16 12:04 WBC RBC Hgb Hct MCV MCH MCHC RDW Plt Count Seg Neutrophils % Lymphocytes % Monocytes % Eosinophils % Basophils % Absolute Neutrophils Absolute Lymphocytes Absolute Monocytes Absolute Eosinophils Absolute Basophils Sodium 144.6 Potassium 4.7 Chloride 122 H Carbon Dioxide 16 L Anion Gap 7 BUN 37 H Creatinine 1.61 H Est GFR ( Amer) 37 L Est GFR (Non-Af Amer) 30 L Glucose 114 H Calcium 8.0 L Total Bilirubin 1.9 H AST 53 H ALT 69 H Alkaline Phosphatase 380 H Total Protein 5.2 L Albumin 1.8 L Impressions: Chest X-Ray 09/15/16 10:51 IMPRESSION: NO ACUTE RADIOGRAPHIC FINDING IN THE CHEST. Head CT 09/15/16 10:52 IMPRESSION: CHRONIC CHANGES OF ATROPHY AND MICROVASCULAR ISCHEMIA. NO ACUTE PROCESS. Assessment & Plan - Diagnosis (1) UTI (urinary tract infection) Qualifiers: Urinary tract infection type: site unspecified Hematuria presence: with hematuria Qualified Code(s): N39.0 - Urinary tract infection, site not specified Is this a current diagnosis for this admission?: YesPlan: Will discontinue antibiotics after am dose (2) Acute encephalopathy Is this a current diagnosis for this admission?: YesPlan: Resolved (3) Acute kidney injury Is this a current diagnosis for this admission?: YesPlan: Improved to baseline. Patient is now eating and drinking well. (4) Chronic kidney disease Qualifiers: Chronic kidney disease stage: stage 3 (moderate) Qualified Code(s): N18.3 - Chronic kidney disease, stage 3 (moderate) Is this a current diagnosis for this admission?: YesPlan: Resolved to baseline CK D3 (5) Cirrhosis Qualifiers: Hepatic cirrhosis type: unspecified hepatic cirrhosis Ascites presence : without ascites Qualified Code(s): K74.60 - Unspecified cirrhosis of liver Is this a current diagnosis for this admission?: YesPlan: Stable patient has had diagnosis of cirrhosis for the last 25 years. (6) Thrombocytopenia Is this a current diagnosis for this admission?: YesPlan: Improved almost to normal. Secondary to infection and cirrhosis (7) General weakness Is this a current diagnosis for this admission?: YesPlan: Physical therapy following (8) Bacteremia Is this a current diagnosis for this admission?: YesPlan: Gram negative rods from urinary tract infection. Repeat cultures are negative at 48hrs. Will transition patient to oral antibiotic therapy in preparation for discharge (9) Goals of care, counseling/discussion Is this a current diagnosis for this admission?: YesPlan: Daughter states he wished to proceed with [facility] hospice post discharge. She understands hospice philosophy with father having hospice for his last here at home before he . - Time Time Spent with patient: 25-34 minutes Critical Time spent with patient: 15-24 minutes Medications reviewed and adjusted accordingly: Yes Anticipated discharge: Hospice Within: within 24 hours
--- NOTE | 2016-09-24 15:47 | PDOC DISCHARGE SUMMARY ---
General - Admit/Disc Date/PCP Admission Date/Primary Care Provider: 09/15/16 14:03 ASHLYN GELLER Discharge Date: 09/25/16 - Discharge Diagnosis (1) UTI (urinary tract infection) Is this a current diagnosis for this admission?: YesSummary: Treated and resolved (2) Acute encephalopathy Is this a current diagnosis for this admission?: YesSummary: Resolved (3) Acute kidney injury Is this a current diagnosis for this admission?: YesSummary: Resolved to baseline (4) Chronic kidney disease Is this a current diagnosis for this admission?: YesSummary: Patient has chronic kidney disease stage III avoid nephrotoxic drugs and dosages (5) Cirrhosis Is this a current diagnosis for this admission?: YesSummary: Presently stable. She has had this diagnosis for the last 25 years (6) Thrombocytopenia Is this a current diagnosis for this admission?: YesSummary: Resolved to normal (7) General weakness Is this a current diagnosis for this admission?: Yes (8) Bacteremia Is this a current diagnosis for this admission?: YesSummary: Resolved last cultures were negative. (9) Goals of care, counseling/discussion Is this a current diagnosis for this admission?: YesSummary: Patient will go home with [facility] - Additional Information Resuscitation Status: Full Code Discharge Diet: Regular Discharge Activity: Activity As Tolerated Home Medications: Furosemide [Lasix 40 mg Tablet] 40 mg PO QAM 04/13/15 Hydrocodone Bit/Acetaminophen [Hydrocodon-Acetaminophen 5-325] 1 tab PO Q4HP PRN 04/13/15 Brimonidine Tartrate [Alphagan P] 5 ml OU BID 09/15/16 Carvedilol [Coreg 3.125 mg Tablet] 3.125 mg PO BID 09/15/16 Citalopram Hydrobromide [Celexa 20 mg Tablet] 20 mg PO DAILY 09/15/16 Furosemide [Lasix] 20 mg PO QAM 09/15/16 Latanoprost 2.5 ml OU QHS 09/15/16 Loperamide HCl [Loperamide] 2 mg PO QID 09/15/16 Mirtazapine 7.5 mg PO QHS 09/15/16 Spironolactone [Aldactone 25 mg Tablet] 25 mg PO DAILY 09/15/16 Timolol Maleate [Timoptic] 5 ml OU DAILY 09/15/16 Acetaminophen [Tylenol 325 mg Tablet] 650 mg PO Q8HP PRN tablet 09/24/16 Fluticasone Propionate [Flonase Nasal Buda 50 Mcg/Buda 16 gm] 2 spray NASL Q12A spray.pump 09/24/16 Guaifenesin [Mucinex Sr 600 mg Tablet.sa] 600 mg PO Q6 tablet.sa 09/24/16 History of Present Illness Patient complains of: Altered mental status History of Present Illness: TODD JORGE is a 89 year old with a past medical history of chronic kidney disease stage III and remote history of DVT. The patient presented to the emergency department with her daughter with a chief complaint of weakness. According to the daughter, the patient had been treated for urinary tract infection by her primary care provider yesterday and was started on penicillin. According to the daughter the patient is allergic to amoxicillin. Since that time the patient has had decrease in appetite and diarrhea. Morning of presentation the daughter noted Altered and change in mental status, inability to walk, which is not normal for her. During to the daughter the patient resides with her her son. Last week she was coughing and congested and her primary care provider put on a 5 day course of prednisone which she finished on Saturday. Saturday, the daughter says that the patient was "out of it" mentally, but she thought it might be due to the prednisone she had been taking. On Saturday and , the patient was "fine", then, yesterday, she was unable to walk and confused and "spaced out". Patient's normal mental status is " sharp as a tack", for example, according to the daughter, patient can complete the [employer] crossword puzzle in minutes. She does have poor eyesight and poor hearing chronically. She has headaches occasionally for a long time, nothing new. Daughter says patient has diarrhea frequently. No vomiting currently. Has not had a fever or been ill in any way recently. Upon presentation the patient was found to have a creatinine that was elevated of 2.6 to wear is her baseline is in the 1.5 range. Patient was noted to have elevated LFTs as well. Hematology is still pending at the time of [place]. The patient is a oriented to self and her daughter however she is disoriented regarding time and situation. Hospital Course Hospital Course: Patient was admitted to the hospitalist service on telemetry. She was started on broad-spectrum IV antibiotics after urine and blood cultures were obtained. She was given IV hydration secondary to volume depletion from sepsis. She was noted to have extremely low platelet count 30,000. This was thought to be secondary to cirrhosis and infection. She had no active bleeding during her hospitalization. Blood cultures and urine cultures are positive for gram- negative rods, e.coli. This is sensitive to Levaquin. After 3 days her Levaquin was transitioned to oral repeat blood cultures remain negative at 48 hours. She was seen in consult by palliative care secondary to her multiple comorbidities and advanced age. Patient's daughter has elected for her to go home but [facility] hospice services at home. She does not wish her to be placed in a nursing facility. Patient did improve her mentation with resolution of her bacteremia. She is pretty much back to her baseline. She is oriented to person, place, situation and most of the time. She does not wish to have further aggressive care. She is agreeable to outpatient hospice services as well. Physical Exam Vital Signs: Temp Pulse Resp BP Pulse Ox 97.4 F 64 17 148/69 H 98 09/24/16 11:16 09/24/16 11:16 09/24/16 11:16 09/24/16 11:16 09/24/16 11:16 Intake & Output 09/23/16 09/24/16 09/25/16 06:59 06:59 06:59 Intake Total 840 1185 Balance 840 1185 Weight 75.6 kg General appearance: PRESENT: no acute distress, obese, well-developed, well- nourished Head exam: PRESENT: atraumatic, normocephalic Eye exam: PRESENT: conjunctiva pink, EOMI, PERRLA. ABSENT: scleral icterus Ear exam: PRESENT: normal external ear exam Mouth exam: PRESENT: moist, tongue midline Neck exam: ABSENT: carotid bruit, JVD, lymphadenopathy, thyromegaly Respiratory exam: PRESENT: decreased breath sounds, symmetrical, unlabored Cardiovascular exam: PRESENT: RRR. ABSENT: diastolic murmur, rubs, systolic murmur Pulses: PRESENT: normal dorsalis pedis pul Vascular exam: PRESENT: normal capillary refill GI/Abdominal exam: PRESENT: hypoactive bowel sounds, soft Rectal exam: PRESENT: deferred Extremities exam: PRESENT: full ROM. ABSENT: calf tenderness, clubbing, pedal edema Neurological exam: PRESENT: alert, altered, awake, oriented to person, oriented to place, oriented to situation, CN II-XII grossly intact Psychiatric exam: PRESENT: appropriate affect, normal mood. ABSENT: homicidal ideation, suicidal ideation Skin exam: PRESENT: dry, intact, warm. ABSENT: cyanosis, rash Results Laboratory Results: 09/24/16 07:06 09/24/16 12:04 09/24/16 09/24/16 09/24/16 07:06 07:06 10:25 WBC 9.8 RBC 3.57 L Hgb 11.4 L Hct 34.7 L MCV 97 MCH 31.9 MCHC 32.8 RDW 18.2 H Plt Count 109 L Seg Neutrophils % 64.0 Lymphocytes % 25.2 Monocytes % 7.7 Eosinophils % 2.4 Basophils % 0.7 Absolute Neutrophils 6.3 Absolute Lymphocytes 2.5 Absolute Monocytes 0.8 Absolute Eosinophils 0.2 Absolute Basophils 0.1 Sodium Cancelled Cancelled Potassium Cancelled Cancelled Chloride Cancelled Cancelled Carbon Dioxide Cancelled Cancelled Anion Gap Cancelled Cancelled BUN Cancelled Cancelled Creatinine Cancelled Cancelled Est GFR ( Amer) Cancelled Cancelled Est GFR (Non-Af Amer) Cancelled Cancelled Glucose Cancelled Cancelled Calcium Cancelled Cancelled Total Bilirubin Cancelled Cancelled AST Cancelled Cancelled ALT Cancelled Cancelled Alkaline Phosphatase Cancelled Cancelled Total Protein Cancelled Cancelled Albumin Cancelled Cancelled 09/24/16 12:04 WBC RBC Hgb Hct MCV MCH MCHC RDW Plt Count Seg Neutrophils % Lymphocytes % Monocytes % Eosinophils % Basophils % Absolute Neutrophils Absolute Lymphocytes Absolute Monocytes Absolute Eosinophils Absolute Basophils Sodium 144.6 Potassium 4.7 Chloride 122 H Carbon Dioxide 16 L Anion Gap 7 BUN 37 H Creatinine 1.61 H Est GFR ( Amer) 37 L Est GFR (Non-Af Amer) 30 L Glucose 114 H Calcium 8.0 L Total Bilirubin 1.9 H AST 53 H ALT 69 H Alkaline Phosphatase 380 H Total Protein 5.2 L Albumin 1.8 L Impressions: Chest X-Ray 09/15/16 10:51 IMPRESSION: NO ACUTE RADIOGRAPHIC FINDING IN THE CHEST. Head CT 09/15/16 10:52 IMPRESSION: CHRONIC CHANGES OF ATROPHY AND MICROVASCULAR ISCHEMIA. NO ACUTE PROCESS. Qualifiers PATEINT BEING DISCHARGED WITH ANY OF THE FOLLOWING DIAGNOSIS?: No Plan Discharge Plan: Home with family and [facility] hospice services Time Spent: Less than 30 Minutes
[2016-09-24] MEDS: MONTELUKAST SODIUM 10 MG TABLET PO SCH (22:36)
[2016-09-24] MEDS: MIRTAZAPINE 15 MG TABLET PO SCH (22:37)
[2016-09-24] MEDS: LATANOPROST 0.005% OPH SOLN 2.5 ML OU SCH (22:37)
[2016-09-25] MEDS: GUAIFENESIN 600 MG TABLET.SA PO SCH (05:38)
[2016-09-25] MEDS: FLUTICASONE NASAL SPRAY 50 MCG/SPRY 120 SPRAY/16 GM NASL SCH (05:38)
[2016-09-25 07:44] VITALS: BP 152/53
--- NOTE | 2016-09-25 16:06 | PDOC PROGRESS REPORT ---
Subjective Progress Note for:: 09/25/16 Subjective:: The patient was seen earlier today on rounds. The patient denies any nausea, vomiting, diarrhea, shortness of breath, dizziness, chest pain, heart palpitations, fevers, or chills. The patient has remained afebrile. Blood pressures have been in a good range. When prompted the patient voices no other concerns at this time. Review of systems: The rest of the review of systems is negative. Agree with the patient's review of sleep dictated discharge summary dated 2015. Physical Exam Vital Signs: Temp Pulse Resp BP Pulse Ox 97.5 F 63 16 152/53 H 99 09/25/16 07:31 09/25/16 07:31 09/25/16 07:31 09/25/16 07:31 09/25/16 07:31 Intake & Output 09/23/16 09/24/16 09/25/16 23:59 23:59 23:59 Intake Total 630 555 405 Balance 630 555 405 Weight 75.6 kg General appearance: PRESENT: no acute distress, well-developed, well-nourished Head exam: PRESENT: atraumatic, normocephalic Eye exam: PRESENT: conjunctiva pink, EOMI, PERRLA. ABSENT: scleral icterus Ear exam: PRESENT: normal external ear exam Mouth exam: PRESENT: moist, tongue midline Neck exam: ABSENT: carotid bruit, JVD, lymphadenopathy, thyromegaly Respiratory exam: PRESENT: clear to auscultation noe. ABSENT: rales, rhonchi, wheezes Cardiovascular exam: PRESENT: RRR. ABSENT: diastolic murmur, rubs, systolic murmur Pulses: PRESENT: normal dorsalis pedis pul Vascular exam: PRESENT: normal capillary refill GI/Abdominal exam: PRESENT: normal bowel sounds, soft. ABSENT: distended, guarding, mass, organolmegaly, rebound, tenderness Rectal exam: PRESENT: deferred Extremities exam: PRESENT: full ROM. ABSENT: calf tenderness, clubbing, pedal edema Neurological exam: PRESENT: alert, awake, oriented to person, oriented to place , oriented to time, oriented to situation, CN II-XII grossly intact. ABSENT: motor sensory deficit Psychiatric exam: PRESENT: appropriate affect, normal mood. ABSENT: homicidal ideation, suicidal ideation Skin exam: PRESENT: dry, intact, warm. ABSENT: cyanosis, rash Results Laboratory Results: 09/24/16 07:06 09/24/16 12:04 Impressions: Chest X-Ray 09/15/16 10:51 IMPRESSION: NO ACUTE RADIOGRAPHIC FINDING IN THE CHEST. Head CT 09/15/16 10:52 IMPRESSION: CHRONIC CHANGES OF ATROPHY AND MICROVASCULAR ISCHEMIA. NO ACUTE PROCESS. Assessment & Plan - Diagnosis (1) UTI (urinary tract infection) Qualifiers: Urinary tract infection type: site unspecified Hematuria presence: with hematuria Qualified Code(s): N39.0 - Urinary tract infection, site not specified Is this a current diagnosis for this admission?: YesPlan: The patient has completed course (2) Bacteremia Is this a current diagnosis for this admission?: Yes (3) Acute kidney injury Is this a current diagnosis for this admission?: Yes (4) Acute encephalopathy Is this a current diagnosis for this admission?: Yes (5) Chronic kidney disease Qualifiers: Chronic kidney disease stage: stage 3 (moderate) Qualified Code(s): N18.3 - Chronic kidney disease, stage 3 (moderate) Is this a current diagnosis for this admission?: Yes (6) Cirrhosis Qualifiers: Hepatic cirrhosis type: unspecified hepatic cirrhosis Ascites presence : without ascites Qualified Code(s): K74.60 - Unspecified cirrhosis of liver Is this a current diagnosis for this admission?: Yes (7) Thrombocytopenia Is this a current diagnosis for this admission?: YesPlan: Much improved (8) Pulmonary hypertension Is this a current diagnosis for this admission?: Yes (9) Glaucoma Qualifiers: Glaucoma type: unspecified type Laterality: unspecified laterality Qualified Code(s): H40.9 - Unspecified glaucoma Is this a current diagnosis for this admission?: Yes (10) Macular degeneration Is this a current diagnosis for this admission?: Yes (11) General weakness Is this a current diagnosis for this admission?: Yes (12) History of MRSA infection Is this a current diagnosis for this admission?: No - Time Time Spent with patient: 15-24 minutes Medications reviewed and adjusted accordingly: Yes Anticipated discharge: Hospice Disposition: The patient is to be discharged home with hospice
== END 2016-09-25 09:50 | disposition hospice, home (50) | DRG 689 ==
LOC: ER 10:23 → EH 14:03 → UNDOADMIN 14:33 → EH 14:33 → 5 19:27
PROVIDERS: ADMIT Family Medicine; ATTEND Family Medicine
DX: N39.0 Urinary tract infection, site not specified (principal); G93.40 Encephalopathy, unspecified; N17.9 Acute kidney failure, unspecified; N82.4 Other female intestinal-genital tract fistulae; E46 Unspecified protein-calorie malnutrition; N18.3 Chronic kidney disease, stage 3 (moderate); K74.60 Unspecified cirrhosis of liver; B96.20 Unspecified Escherichia coli [E. coli] as the cause of diseases classified elsewhere; D69.6 Thrombocytopenia, unspecified; I27.2 Other secondary pulmonary hypertension; H40.9 Unspecified glaucoma; H35.30 Unspecified macular degeneration; R62.7 Adult failure to thrive; R41.82 Altered mental status, unspecified; Z68.31 Body mass index [BMI] 31.0-31.9, adult; Z86.14 Personal history of Methicillin resistant Staphylococcus aureus infection; Z86.718 Personal history of other venous thrombosis and embolism; Z88.6 Allergy status to analgesic agent; Z88.0 Allergy status to penicillin
CPT/HCPCS: 36415; 51701; 70450; 71010; 80048; 80053; 81001; 82550; 82553; 83690; 83735; 84100; 84484; 85025; 85027; 85610; 87040; 87045; 87077; 87086; 87088; 87186; 87205; 87493; 89055; 93005; 93010; 94667; 94668; 94799; 96365; 99285; G8978-GP; G8979-GP; J0456; J0696; J1956; J3480; J3490; J7030; J7060; J7512